=== PATIENT | female | born 1995 | race Caucasian/White ===

== ENCOUNTER 2016-08-10 06:09 | Emergency (ER) | payer MEDICAID ==
--- NOTE | 2016-08-10 08:37 | ER Document Report ---
ED General - General Chief Complaint: Headache Stated Complaint: DIFFICULTY BREATHING Mode of Arrival: Ambulatory Information source: Patient Notes: 20-year-old female history of cluster headaches presents with complaint of headache. Patient notes she gets at least 2 cluster headaches a week, has not been here since her concussion and normally treats at home but this time she felt tightness around her chest while she was having a headache. Currently denies any shortness of breath or any other concerns TRAVEL OUTSIDE OF THE [place] IN LAST 30 DAYS: No - HPI Onset: Just prior to arrival Onset/Duration: Sudden Quality of pain: Sharp Severity: Mild Pain Level: 1 Associated symptoms: Headache Exacerbated by: Denies Relieved by: Denies Similar symptoms previously: Yes Recently seen / treated by doctor: Yes - Related Data Allergies/Adverse Reactions: Penicillins Allergy (Verified 07/16/15 16:57) Hives Sulfa (Sulfonamide Antibiotics) Allergy (Verified 07/16/15 16:57) Hives vancomycin [Vancomycin] Adverse Reaction (Verified 07/16/15 16:57) Urticaria Past Medical History - General Information source: Patient - Social History Smoking Status: Never Smoker Cigarette use (# per day): No Chew tobacco use (# tins/day): No Smoking Education Provided: No Frequency of alcohol use: None Drug Abuse: None Family History: Hyperlipidemia, Hypertension, Thyroid Disfunction, Other - CAT - Past Medical History Cardiac Medical History: Denies: Hx Coronary Artery Disease, Hx Heart Attack, Hx Hypertension Pulmonary Medical History: Denies: Hx Asthma, Hx Bronchitis, Hx COPD, Hx Pneumonia Neurological Medical History: Denies: Hx Cerebrovascular Accident Endocrine Medical History: Renal/ Medical History: Reports: Hx Kidney Stones Musculoskeltal Medical History: Denies Hx Arthritis Skin Medical History: Reports Hx Eczema, Reports Hx MRSA Past Surgical History: Reports: Hx Oral Surgery - jaw surgery - Immunizations Immunizations up to date: Yes Hx Diphtheria, Pertussis, Tetanus Vaccination: Yes Review of Systems - Review of Systems Notes: REVIEW OF SYSTEMS: CONSTITUTIONAL : Denies fever, chills, or sweats. Denies recent illness. EENT: Denies eye, ear, throat, or mouth pain or symptoms. Denies nasal or sinus congestion or discharge. Denies throat, tongue, or mouth swelling or difficulty swallowing. CARDIOVASCULAR: Denies chest pain. Denies palpitations or racing or irregular heart beat. Denies ankle edema. RESPIRATORY: Denies cough, cold, or chest congestion. Denies shortness of breath, difficulty breathing, or wheezing. GASTROINTESTINAL: Denies abdominal pain or distention. Denies nausea, vomiting , or diarrhea. Denies blood in vomitus, stools, or per rectum. Denies black, tarry stools. Denies constipation. GENITOURINARY: Denies difficulty urinating, painful urination, burning, frequency, blood in urine, or discharge. FEMALE GENITOURINARY: Denies vaginal bleeding, heavy or abnormal periods, irregular periods. Denies vaginal discharge or odor. MUSCULOSKELETAL: Denies back or neck pain or stiffness. Denies joint pain or swelling. SKIN: Denies rash, lesions or sores. HEMATOLOGIC : Denies easy bruising or bleeding. LYMPHATIC: Denies swollen, enlarged glands. NEUROLOGICAL: Admits to headache PSYCHIATRIC: Denies anxiety or stress. Denies depression, suicidal ideation, or homicidal ideation. ALL OTHER SYSTEMS REVIEWED AND NEGATIVE. Dictation was performed using [employer] voice recognition software PHYSICAL EXAMINATION: GENERAL: Well-appearing, well-nourished and in no acute distress. HEAD: Atraumatic, normocephalic. EYES: Pupils equal round and reactive to light, extraocular movements intact, conjunctiva are normal. ENT: Nares patent, oropharynx clear without exudates. Moist mucous membranes. NECK: Normal range of motion, supple without lymphadenopathy LUNGS: Breath sounds clear to auscultation bilaterally and equal. No wheezes rales or rhonchi. HEART: Regular rate and rhythm without murmurs ABDOMEN: Soft, nontender, nondistended abdomen. No guarding, no rebound. No masses appreciated. Female : deferred Musculoskeletal: Normal range of motion, no pitting or edema. No cyanosis. NEUROLOGICAL: Cranial nerves grossly intact. Normal speech, normal gait. Normal sensory, motor exams finger to nose [id number] are normal PSYCH: Normal mood, normal affect. SKIN: Warm, Dry, normal turgor, no rashes or lesions noted. Physical Exam - Vital signs Vitals: Temp Pulse Resp BP Pulse Ox 97.2 F 67 14 129/81 H 99 08/10/16 06:12 08/10/16 06:12 08/10/16 06:12 08/10/16 06:12 08/10/16 06:12 Course - Re-evaluation Re-evalutation: 08/10/16 08:35 Patient was placed on nasal cannula, 4 L. After receiving oxygen for over an hour patient notes her headache has significantly improved. I believe patient is stable for discharge does not require any imaging at this time as her symptoms are similar to her previous After performing a Medical Screening Examination, I estimate there is LOW risk for ACUTE GLAUCOMA, TEMPORAL ARTERITIS, MENINGITIS, INCRANIAL HEMORRHAGE, or ISCHEMIC STROKE thus I consider the discharge disposition reasonable. The patient and I have discussed the diagnosis and risks, and we agree with discharging home with close follow-up with the understanding that symptoms and presentations can change. We also discussed returning to the Emergency Department immediately if new or worsening symptoms occur. We have discussed the symptoms which are most concerning (e.g., changing or worsening symptoms, new numbness or weakness, vomiting, fever) that necessitate immediate return. - Vital Signs Vital signs: Temp Pulse Resp BP Pulse Ox 97.1 F 81 18 116/61 100 08/10/16 07:33 08/10/16 07:33 08/10/16 07:33 08/10/16 07:33 08/10/16 07:35 Discharge - Discharge Clinical Impression: Cluster headache Qualifiers: Headache chronicity pattern: episodic headache Intractability: intractable Qualified Code(s): G44.011 - Episodic cluster headache, intractable Condition: Stable Disposition: HOME, SELF-CARE Instructions: Cluster Headache ([facility]) Referrals: SHAGGY GALLAGHER FNP-C [Primary Care Provider] - Follow up as needed JESÚS VU MD [ACTIVE STAFF] - Follow up tomorrow
[2016-08-10 08:47] VITALS: BP 122/72
== END 2016-08-10 08:47 | disposition home or self-care (01) ==
LOC: ER 06:09
DX: G44.011 Episodic cluster headache, intractable (principal); R06.00 Dyspnea, unspecified; Z88.0 Allergy status to penicillin; Z88.2 Allergy status to sulfonamides; Z88.3 Allergy status to other anti-infective agents; Z87.442 Personal history of urinary calculi; Z86.14 Personal history of Methicillin resistant Staphylococcus aureus infection
CPT/HCPCS: 99283

== ENCOUNTER 2016-10-16 09:24 | Emergency (ER) | payer MEDICAID ==
[2016-10-16] MEDS ORDERED: HYDROMORPHONE HCL INJ/PF 2 MG/ML AMPULE IM ONE (10:06)
[2016-10-16] MEDS ORDERED: ONDANSETRON 4 MG TAB.RAPDIS PO ONE (10:06)
--- NOTE | 2016-10-16 10:13 | ER Document Report ---
ED General - General Chief Complaint: Headache Stated Complaint: HEADACHE Time seen by provider: 10:07 Mode of Arrival: Ambulatory Information source: Patient Notes: This is a 20-year-old female with a history of cluster headaches that presents to the emergency room with a headache consistent with cluster headaches. She does use oxygen therapy at home and states that it did not work this time. The patient does state she's been under a lot of stress lately. She recently had reconstructive surgery of her right hip and just started physical therapy and had run out of her pain medicine and is not been getting sleep at night because of an increased ache because of the physical therapy. Her surgeon is in [place] and her appointment last week was canceled because of emergent surgery and she is due to see the surgeon in approximately another week. Patient denies any fevers, chills, shortness of breath, calf pain. TRAVEL OUTSIDE OF THE [place] IN LAST 30 DAYS: No - HPI Onset: Yesterday Onset/Duration: Gradual Quality of pain: Dull Severity: Moderate Pain Level: 3 Associated symptoms: denies: Chills, Fever, Shortness of breath Exacerbated by: Denies Relieved by: Denies Similar symptoms previously: Yes Recently seen / treated by doctor: Yes - Related Data Allergies/Adverse Reactions: Penicillins Allergy (Verified 10/16/16 09:31) Hives Sulfa (Sulfonamide Antibiotics) Allergy (Verified 10/16/16 09:31) Hives vancomycin [Vancomycin] Adverse Reaction (Verified 10/16/16 09:31) Urticaria Past Medical History - General Information source: Patient - Social History Smoking Status: Never Smoker Cigarette use (# per day): No Chew tobacco use (# tins/day): No Frequency of alcohol use: None Drug Abuse: None Lives with: Family Family History: Hyperlipidemia, Hypertension, Thyroid Disfunction, Other - CAT Patient has suicidal ideation: No Patient has homicidal ideation: No - Past Medical History Cardiac Medical History: Denies: Hx Coronary Artery Disease, Hx Heart Attack, Hx Hypertension Pulmonary Medical History: Denies: Hx Asthma, Hx Bronchitis, Hx COPD, Hx Pneumonia Neurological Medical History: Denies: Hx Cerebrovascular Accident Endocrine Medical History: Renal/ Medical History: Reports: Hx Kidney Stones. 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 Skin Medical History: Reports Hx Eczema, Reports Hx MRSA Past Surgical History: Reports: Hx Oral Surgery - jaw surgery, Hx Orthopedic Surgery - Immunizations Immunizations up to date: Yes Hx Diphtheria, Pertussis, Tetanus Vaccination: Yes Review of Systems - Review of Systems Constitutional: denies: Chills, Fever EENT: No symptoms reported Cardiovascular: No symptoms reported Respiratory: No symptoms reported Gastrointestinal: No symptoms reported Genitourinary: No symptoms reported Female Genitourinary: No symptoms reported Musculoskeletal: See HPI Hematologic/Lymphatic: No symptoms reported Neurological/Psychological: See HPI Physical Exam - Vital signs Vitals: Temp Pulse Resp BP Pulse Ox 98.0 F 71 18 128/81 H 98 10/16/16 09:28 10/16/16 09:28 10/16/16 09:28 10/16/16 09:28 10/16/16 09:28 Notes: Physical exam: GENERAL: 20-year-old female, alert and oriented 3, no acute distress. HEAD: Atraumatic, normocephalic. EYES: Pupils equal round and reactive to light, extraocular movements intact, sclera anicteric, conjunctiva are normal. ENT: TMs normal, nares patent, oropharynx clear without exudates. Moist mucous membranes. NECK: Normal range of motion, supple without lymphadenopathy or JVD. LUNGS: Breath sounds clear to auscultation bilaterally and equal. No wheezes rales or rhonchi. HEART: Regular rate and rhythm without murmurs, rubs or gallops. ABDOMEN: Soft, normoactive bowel sounds. No tenderness to palpation. No guarding, no rebound. No masses appreciated. EXTREMITIES: She does have a right hip brace that she is using. NEUROLOGICAL: Cranial nerves II through XII grossly intact. Motor 5 over 5, sensory grossly intact, she is able to ambulate with her brace. Her cerebellar exam looks good. Her neck is supple. PSYCH: Normal mood, normal affect. SKIN: Warm, Dry, normal turgor, no rashes or lesions noted. Course - Vital Signs Vital signs: Temp Pulse Resp BP Pulse Ox 97.5 F 65 16 116/76 100 10/16/16 12:21 10/16/16 12:21 10/16/16 12:21 10/16/16 12:21 10/16/16 12:21 Discharge - Discharge Clinical Impression: cluster headache Condition: Stable Disposition: HOME, SELF-CARE Instructions: Headache ([facility]), Pain Medication Injection ([facility]), Oral Narcotic Medication ([facility]), Antinausea Medication ([facility]) Additional Instructions: Recommendations: Rest, drink plenty of fluids. Take an [id number] stool softener as discussed. Follow-up with your surgeon at [place] as planned. Follow-up with your primary care doctor Return to the emergency room for any concerns your headache is getting worse. The pain medicine you're taking prescribed as a narcotic. There are several important things you should know about this medicine: 1. This medicine contains Tylenol: It is important that you do not take Tylenol (or acetaminophen) while on this medicine. Tylenol is metabolized by the liver and taking too much Tylenol (acetaminophen) can lay to liver damage and even liver failure. 2. Taking narcotics for too long can lead to physical and mental dependence. Take this medicine only if really needed and in the lowest quantity to achieve pain relief. 3. Do not drink alcohol while on this medicine. Alcohol interacts with narcotics and the combination can be dangerous. 4. Do not drive or operate machinery while on this medicine. 5. Narcotics do cause constipation, so drink plenty of fluids and daily stool softeners. Prescriptions: Alprazolam [Xanax 0.5 Mg Tablet] 1 tab PO TID PRN #20 tablet PRN Reason: Anxiety Oxycodone HCl/Acetaminophen [Percocet 5-325 mg Tablet] 1 - 2 tab PO ASDIR PRN # 25 tablet PRN Reason: Promethazine HCl [Phenergan 25 mg Tablet] 25 mg PO Q6H PRN #15 tablet PRN Reason: Referrals: LATRICE JEFFERS MD [Primary Care Provider] - Follow up as needed
[2016-10-16 12:49] VITALS: BP 116/76
== END 2016-10-16 12:38 | disposition home or self-care (01) ==
LOC: ER 09:24
DX: N20.0 Calculus of kidney (principal); R10.9 Unspecified abdominal pain
CPT/HCPCS: 99284; 96372; 82962; S0119; J1170

== ENCOUNTER 2016-10-17 07:00 | Emergency (ER) | payer MEDICAID ==
[2016-10-17 09:12] LABS: APPEARANCE,URINE CLOUDY; BILIRUBIN,URINE NEGATIVE (NEGATIVE); CALCIUM OXALATE CRYSTALS,URINE MODERATE /HPF; GLUCOSE, URINE NEGATIVE (NEGATIVE); KETONES,URINE NEGATIVE (NEGATIVE); LEUKOCYTE ESTERASE,URINE LARGE (NEGATIVE); NITRITE,URINE NEGATIVE (NEGATIVE); PROTEIN,URINE 30 mg/dL (NEGATIVE); URINE SPECIFIC GRAVITY 1.024; UROBILINOGEN,URINE NEGATIVE mg/dL (<2.0)
[2016-10-17 09:24] LABS: ABSOLUTE EOSINOPHILS # (AUTO) 0.1 10^3/uL (0.0-0.6); ABSOLUTE MONOCYTES (AUTO) 0.6 10^3/uL (0.1-1.4); ABSOLUTE NEUT (AUTO) 5.7 10^3/uL (1.7-8.2); BASOPHILS % (AUTO) 0.4 % (0-2); EOSINOPHILS % (AUTO) 1.6 % (0-6); HEMATOCRIT 38.7 % (36.0-47.0); HEMOGLOBIN 13.1 g/dL (12.0-15.5); HGB HCT DIFFERENCE 0.6; LYMPHOCYTES % (AUTO) 13.2 % (13-45); MEAN CORPUSCULAR HEMOGLOBIN 29.2 pg (27.0-33.4); MEAN CORPUSCULAR HGB CONC 33.9 g/dL (32.0-36.0); MEAN CORPUSCULAR VOLUME 86 fl (80-97); MONOCYTES % (AUTO) 7.5 % (3-13); RED CELL DISTRIBUTION WIDTH 12.8 % (11.5-14.0); SEGMENTED NEUTROPHILS % (AUTO) 77.3 % (42-78); WHITE BLOOD COUNT 7.4 10^3/uL (4.0-10.5)
[2016-10-17] MEDS ORDERED: MORPHINE SULFATE 10 MG/ML INJ IV ONE (09:46)
[2016-10-17 09:50] LABS: ALANINE AMINOTRANSFERASE 23 U/L (5-35); ALBUMIN 4.2 g/dL (3.7-5.6); ALKALINE PHOSPHATASE 88 U/L (50-135); ANION GAP 11 (5-19); ASPARTATE AMINO TRANSFERASE 26 U/L (5-30); BILIRUBIN,TOTAL 0.6 mg/dL (0.2-1.3); BLOOD UREA NITROGEN 10 mg/dL (7-20); CALCIUM 9.8 mg/dL (8.4-10.2); CARBON DIOXIDE 24 mmol/L (22-30); CHLORIDE 106 mmol/L (98-107); CREATININE RESULT 0.65 mg/dL (0.52-1.25); GLUCOSE 108 mg/dL (75-110); POTASSIUM 3.8 mmol/L (3.6-5.0); SODIUM 141.1 mmol/L (137-145); TOTAL PROTEIN 6.8 g/dL (6.3-8.2)
--- NOTE | 2016-10-17 09:54 | ER Document Report ---
ED GI/ - General Chief Complaint: Flank Pain Stated Complaint: FLANK PAIN Notes: Patient is a 20 old female returns to the emergency department complaining of right flank pain. Patient was seen at 9 AM on Tuesday for headache and postop pain. Patient underwent a right hip procedure for a right hip impingement due to defect on September 15 in [place]. Patient states that after they were evaluated in the emergency department for her cluster headaches is discharged home she was able to sleep but woke up this morning complaining of right flank pain, urgency but difficulty initiating urination. She denies any hematuria. States that her pain is on the right side constant burning stabbing pain that occasionally radiates into her right groin. Patient states this is consistent with her previous episodes of kidney stones. She admits to nausea with vomiting at home. Past medical history significant for cluster headaches, kidney stones, hypoglycemia, MRSA of the skin Past surgical history significant for right hip impingement correction, previous jaw surgery Social history she denies any current sexual activity, denies any tobacco use, alcohol, drug use TRAVEL OUTSIDE OF THE [place] IN LAST 30 DAYS: No - Related Data Allergies/Adverse Reactions: Penicillins Allergy (Verified 10/16/16 09:31) Hives Sulfa (Sulfonamide Antibiotics) Allergy (Verified 10/16/16 09:31) Hives vancomycin [Vancomycin] Adverse Reaction (Verified 10/16/16 09:31) Urticaria Past Medical History - Social History Smoking Status: Never Smoker Chew tobacco use (# tins/day): No Frequency of alcohol use: None Drug Abuse: None Family History: Hyperlipidemia, Hypertension, Thyroid Disfunction, Other - CAT Patient has suicidal ideation: No Patient has homicidal ideation: No - Past Medical History Cardiac Medical History: Denies: Hx Coronary Artery Disease, Hx Heart Attack, Hx Hypertension Pulmonary Medical History: Denies: Hx Asthma, Hx Bronchitis, Hx COPD, Hx Pneumonia Neurological Medical History: Denies: Hx Cerebrovascular Accident Endocrine Medical History: Renal/ Medical History: Reports: Hx Kidney Stones. Denies: Hx Peritoneal Dialysis Musculoskeltal Medical History: Denies Hx Arthritis Skin Medical History: Reports Hx Eczema, Reports Hx MRSA Past Surgical History: Reports: Hx Oral Surgery - jaw surgery, Hx Orthopedic Surgery - Immunizations Immunizations up to date: Yes Hx Diphtheria, Pertussis, Tetanus Vaccination: Yes Review of Systems - Review of Systems Constitutional: No symptoms reported EENT: No symptoms reported Cardiovascular: No symptoms reported Respiratory: No symptoms reported Gastrointestinal: See HPI Genitourinary: See HPI Female Genitourinary: No symptoms reported Musculoskeletal: See HPI Skin: No symptoms reported Hematologic/Lymphatic: No symptoms reported Neurological/Psychological: No symptoms reported Physical Exam - Vital signs Vitals: Temp Pulse Resp BP Pulse Ox 97.9 F 67 20 106/92 H 96 10/17/16 07:08 10/17/16 07:08 10/17/16 07:08 10/17/16 07:08 10/17/16 07:08 - Notes Notes: PHYSICAL EXAM GENERAL: Alert but tearful, interacts well. HEAD: Normocephalic, atraumatic. EYES: Pupils equal, round, and reactive to light. Extraocular movements intact. ENT: Oral mucosa moist, tongue midline. NECK: Full range of motion. Supple. Trachea midline. LUNGS: Clear to auscultation bilaterally, no wheezes, rales, or rhonchi. No respiratory distress. HEART: Regular rate and rhythm. No murmurs, gallops, or rubs. ABDOMEN: Soft, nondistended, nontender. No guarding, rebound, or rigidity.. Bowel sounds present in all 4 quadrants. Back: (+) CVA tenderness of right flank, (-) for left side. No spinous process tenderness EXTREMITIES: Moves all extremities spontaneously but guarding with right hip. No edema, radial and dorsalis pedis pulses 2/4 bilaterally. No cyanosis. NEUROLOGICAL: Alert and oriented x3. Normal speech. PSYCH: Normal affect, normal mood. SKIN: Warm, dry, normal turgor. No rashes or lesions noted. Course - Re-evaluation Re-evalutation: 10/17/16 10:37 Patient presents with nonobstructing kidney stone < 5 mm in size. Patient improved in the ED with IV morphine and antiemetics. Patient stable for outpatient management and follow up with urology. Will discharge with flomax and can take her pain medications at home. Patient instructed to return if symptoms do not improve. - Vital Signs Vital signs: Temp Pulse Resp BP Pulse Ox 97.5 F 67 20 106/92 H 96 10/17/16 07:09 10/17/16 07:09 10/17/16 07:09 10/17/16 07:09 10/17/16 07:09 - Laboratory Result Diagrams: 10/17/16 09:10 10/17/16 09:10 Laboratory results interpreted by me: 10/17/16 08:40 Urine Protein 30 H Urine Blood MODERATE H Ur Leukocyte Esterase LARGE H - Diagnostic Test Radiology reviewed: Reports reviewed Discharge - Discharge Clinical Impression: Kidney stone Condition: Good Disposition: HOME, SELF-CARE Additional Instructions: KIDNEY STONE: You are passing or have passed a kidney stone. These stones are usually due to increased calcium or uric acid concentrations in your urine. Stones within the kidney itself are not painful. The pain occurs as the stone leaves the kidney to pass down the long tube, called the ureter, leading to the bladder. If the stone is small, it will usually pass by itself. Most patients can pass the stone at home. You will usually receive medications for pain, nausea or vomiting, and sometimes a medication to assist in passing the kidney stone. However, if the pain is very severe or if vomiting prevents you from taking oral pain medications, you may need to return for further treatment. Drink three or four quarts of fluids per day. You will be given pain medication (if needed) and urine strainers. Strain all your urine to see if the stone passes. If your doctor has asked you to bring the stone in for analysis, return with the stone once it has passed. Return if pain or vomiting become severe, if you develop a high fever, if you are unable to pass your urine, or if other unusual symptoms occur. PAIN MEDICATION INJECTION: You have received an injection of a pain medication. You should experience significant pain relief within 45 minutes. This drug is a narcotic - - it will impair your judgement, slow your reaction time and make you sleepy ( as well as relieve your pain). Narcotics also can cause nausea. You should not drive, work with machinery, or perform any task requiring mental alertness until all effects of the medication are gone -- six to eight hours. Do not take any alcohol, or sedatives, and do not take any other medication without checking with your physician. ANTINAUSEA MEDICATION: You have been given a medication to suppress nausea and vomiting. This type of medication can be given as a shot, pill, or suppository. It will usually last for many hours. Pills and shots usually last six to eight hours, suppositories last about 12 hours. For the typical illness, only one or two doses of the medication may be necessary. Mild lightheadedness may occur. This type of medicine can cause drowsiness. Do not drive or operate dangerous machinery while under its influence. Do not mix with alcohol. See your doctor at once if you have muscle spasms or tightness, or uncontrollable motions (particularly of the neck, mouth, or jaw). Persistent vomiting or severe lightheadedness should also be evaluated by the physician. ORAL NARCOTIC MEDICATION: You have been given a prescription for pain control. This medication is a narcotic. It's best taken with food, as nausea can result if taken on an empty stomach. Don't operate machinery or drive within six hours of taking this medication. Do not combine this medicine with alcohol, or with any medication which can cause sedation (such as cold tablets or sleeping pills) unless you get permission from the physician. Narcotics tend to cause constipation. If possible, drink plenty of fluids and eat a diet high in fiber and fruits. Please be aware that prescription narcotics also have the potential for abuse. People become addicted to these medications because of the general sense of wellbeing that they induce. This feeling along with a significant reduction in tension, anxiety, and aggression provides a stimulating seductive quality to these drugs. Once your pain is under control, we encourage you to discard your unused narcotics. FLOMAX (tamsulosin): Flomax is a medicine that shrinks the prostate gland. It helps relieve symptoms of benign prostatic hypertrophy, such as frequent urination, weak stream, and inadequate emptying. It has been shown to dilate the ureter (tube leading from the kidney to the bladder) and help in passing kidney stones Flomax usually causes no side effects. You may notice slight tiredness and dizziness for a few days. Some patients develop nasal congestion. Rarely, impotence can occur. If the symptoms are bothersome and don't improve with continued use, call your doctor. Contact your doctor or return if you have fainting spells, severe weakness or dizziness, shortness of breath, or rash. FOLLOW-UP CARE: If you have been referred to a physician for follow-up care, call the physician s office for an appointment as you were instructed or within the next two days. If you experience worsening or a significant change in your symptoms, notify the physician immediately or return to the Emergency Department at any time for re-evaluation. Prescriptions: Ciprofloxacin HCl [Cipro 250 mg Tablet] 1 tab PO BID 3 Days Tamsulosin HCl [Flomax] 0.4 mg PO DAILY #10 cap.er.24h
[2016-10-17] MEDS ORDERED: NORMAL SALINE 1000 ML 1,000 ML IV ONE (09:55)
[2016-10-17 12:14] VITALS: BP 111/65
== END 2016-10-17 12:14 | disposition home or self-care (01) ==
LOC: ER 07:00
DX: N20.0 Calculus of kidney (principal); R10.9 Unspecified abdominal pain; R39.15 Urgency of urination; R11.2 Nausea with vomiting, unspecified; Z98.890 Other specified postprocedural states; Z88.0 Allergy status to penicillin; Z88.2 Allergy status to sulfonamides
CPT/HCPCS: 99284; 96374; 36415; 85025; 81025; 80053; 81001; 76380; J2270; J7030

== ENCOUNTER 2017-02-21 03:22 | Emergency (ER) | payer MEDICAID | END 2017-02-21 04:00 | disposition left against medical advice (07) | LOC: ER 03:22 | DX: Z53.21 Procedure and treatment not carried out due to patient leaving prior to being seen by health care provider (principal) ==

== ENCOUNTER 2017-02-24 11:06 | Emergency (ER) | payer MEDICAID ==
--- NOTE | 2017-02-24 11:38 | ER Document Report ---
ED Medical Screen (RME) - General Chief Complaint: Possible Kidney Stone Stated Complaint: FLANK PAIN Time Seen by Provider: 02/24/17 11:35 Notes: 21-year-old patient presents with right flank pain. She states that she has recently had several surgeries on her right hip. During evaluations for the surgeries she states that they incidentally noted that she had a kidney stone in her right kidney. They told her that she would probably have complications from this in the future. She states she has stones in the past. She states yesterday she started with severe right flank pain. She is having some nausea and vomiting. She states her urine is darker and she has more pressure when she urinates. No fevers. TRAVEL OUTSIDE OF THE [place] IN LAST 30 DAYS: No - Related Data Allergies/Adverse Reactions: Penicillins Allergy (Verified 02/24/17 11:31) Hives Sulfa (Sulfonamide Antibiotics) Allergy (Verified 02/24/17 11:31) Hives vancomycin [Vancomycin] Adverse Reaction (Verified 02/24/17 11:31) Urticaria Home Medications: Current Home Medications No Home Medications 02/24/17 [History] Past Medical History - Past Medical History Cardiac Medical History: Denies: Hx Coronary Artery Disease, Hx Heart Attack, Hx Hypertension Pulmonary Medical History: Denies: Hx Asthma, Hx Bronchitis, Hx COPD, Hx Pneumonia Neurological Medical History: Denies: Hx Cerebrovascular Accident Endocrine Medical History: Renal/ Medical History: Reports: Hx Kidney Stones. Denies: Hx Peritoneal Dialysis Musculoskeltal Medical History: Denies Hx Arthritis Skin Medical History: Reports Hx Eczema, Reports Hx MRSA Past Surgical History: Reports: Hx Oral Surgery - jaw surgery, Hx Orthopedic Surgery - Immunizations Immunizations up to date: Yes Hx Diphtheria, Pertussis, Tetanus Vaccination: Yes Physical Exam - Vital signs Vitals: Temp Pulse Resp BP Pulse Ox 98.2 F 77 20 142/86 H 98 02/24/17 11:22 02/24/17 11:22 02/24/17 11:22 02/24/17 11:22 02/24/17 11:22 Course - Vital Signs Vital signs: Temp Pulse Resp BP Pulse Ox 98.2 F 77 20 142/86 H 98 02/24/17 11:22 02/24/17 11:22 02/24/17 11:22 02/24/17 11:22 02/24/17 11:22
[2017-02-24 12:04] LABS: APPEARANCE,URINE SLIGHTLY-CLOUDY; BILIRUBIN,URINE NEGATIVE (NEGATIVE); GLUCOSE, URINE NEGATIVE (NEGATIVE); KETONES,URINE NEGATIVE (NEGATIVE); LEUKOCYTE ESTERASE,URINE TRACE (NEGATIVE); NITRITE,URINE POSITIVE (NEGATIVE); PROTEIN,URINE 30 mg/dL (NEGATIVE); URINE SPECIFIC GRAVITY 1.015; UROBILINOGEN,URINE NEGATIVE mg/dL (<2.0)
[2017-02-24] MEDS ORDERED: NORMAL SALINE 1000 ML 1,000 ML IV ONE ×2 (12:08→13:36)
[2017-02-24] MEDS ORDERED: MORPHINE SULFATE 10 MG/ML INJ IV ONE (12:08)
[2017-02-24 12:55] LABS: ABSOLUTE EOSINOPHILS # (AUTO) 0.1 10^3/uL (0.0-0.6); ABSOLUTE LYMPHOCYTES (AUTO) 1.5 10^3/uL (0.5-4.7); ABSOLUTE MONOCYTES (AUTO) 0.6 10^3/uL (0.1-1.4); ABSOLUTE NEUT (AUTO) 4.7 10^3/uL (1.7-8.2); BASOPHILS % (AUTO) 0.4 % (0-2); EOSINOPHILS % (AUTO) 1.3 % (0-6); HEMATOCRIT 41.6 % (36.0-47.0); HEMOGLOBIN 14.3 g/dL (12.0-15.5); HGB HCT DIFFERENCE 1.3; LYMPHOCYTES % (AUTO) 21.2 % (13-45); MEAN CORPUSCULAR HEMOGLOBIN 30.3 pg (27.0-33.4); MEAN CORPUSCULAR HGB CONC 34.4 g/dL (32.0-36.0); MEAN CORPUSCULAR VOLUME 88 fl (80-97); MONOCYTES % (AUTO) 9.2 % (3-13); RED BLOOD COUNT 4.73 10^6/uL (3.72-5.28); SEGMENTED NEUTROPHILS % (AUTO) 67.9 % (42-78)
[2017-02-24 13:08] LABS: ALANINE AMINOTRANSFERASE 17 U/L (9-52); ALBUMIN 4.3 g/dL (3.5-5.0); ALKALINE PHOSPHATASE 98 U/L (38-126); ASPARTATE AMINO TRANSFERASE 36 U/L (14-36); BILIRUBIN,DIRECT 0.3 mg/dL (0.0-0.4); BILIRUBIN,TOTAL 0.6 mg/dL (0.2-1.3); BLOOD UREA NITROGEN 9 mg/dL (7-20); CHLORIDE 109 mmol/L (98-107); CREATININE RESULT 0.66 mg/dL (0.52-1.25); GLUCOSE 82 mg/dL (75-110); POTASSIUM 3.6 mmol/L (3.6-5.0); SODIUM 143.6 mmol/L (137-145); TOTAL PROTEIN 7.4 g/dL (6.3-8.2)
[2017-02-24] MEDS ORDERED: TAMSULOSIN HCL 0.4 MG CAP.SR.24H PO ONE (13:09)
[2017-02-24 13:26] LABS: ANION GAP 14 (5-19); CARBON DIOXIDE 21 mmol/L (22-30)
--- NOTE | 2017-02-24 13:30 | ER Document Report ---
ED GI/ - General Chief Complaint: Possible Kidney Stone Stated Complaint: FLANK PAIN Time Seen by Provider: 02/24/17 11:35 Mode of Arrival: Ambulatory Information source: Patient Notes: Patient is a 21-year-old female with a history of kidney stones who presents to the ER today for right flank pain that began this morning and is "severe" in nature. She does state that it radiates around to her right side, but not into her abdomen. She states that she is past the 2 kidney since she has had before on her own. She also admits to some dysuria and "tea colored" urine. She was recently told she did have a stone in the right kidney accidentally found on CAT scan when she had hip surgery recently. She denies any fevers or chills that she knows of. TRAVEL OUTSIDE OF THE [place] IN LAST 30 DAYS: No - Related Data Allergies/Adverse Reactions: Penicillins Allergy (Verified 02/24/17 11:31) Hives Sulfa (Sulfonamide Antibiotics) Allergy (Verified 02/24/17 11:31) Hives vancomycin [Vancomycin] Adverse Reaction (Verified 02/24/17 11:31) Urticaria Past Medical History - General Information source: Patient - Social History Smoking Status: Unknown if Ever Smoked Family History: Hyperlipidemia, Hypertension, Thyroid Disfunction, Other - CAT Patient has suicidal ideation: No Patient has homicidal ideation: No - Past Medical History Cardiac Medical History: Denies: Hx Coronary Artery Disease, Hx Heart Attack, Hx Hypertension Pulmonary Medical History: Denies: Hx Asthma, Hx Bronchitis, Hx COPD, Hx Pneumonia Neurological Medical History: Denies: Hx Cerebrovascular Accident Endocrine Medical History: Renal/ Medical History: Reports: Hx Kidney Stones. Denies: Hx Peritoneal Dialysis Musculoskeltal Medical History: Denies Hx Arthritis Skin Medical History: Reports Hx Eczema, Reports Hx MRSA Past Surgical History: Reports: Hx Oral Surgery - jaw surgery, Hx Orthopedic Surgery - Immunizations Immunizations up to date: Yes Hx Diphtheria, Pertussis, Tetanus Vaccination: Yes Review of Systems - Review of Systems Constitutional: No symptoms reported EENT: No symptoms reported Cardiovascular: No symptoms reported Respiratory: No symptoms reported Gastrointestinal: No symptoms reported Genitourinary: See HPI Female Genitourinary: No symptoms reported Musculoskeletal: No symptoms reported Skin: No symptoms reported Hematologic/Lymphatic: No symptoms reported Neurological/Psychological: No symptoms reported Physical Exam - Vital signs Vitals: Temp Pulse Resp BP Pulse Ox 98.2 F 77 20 142/86 H 98 02/24/17 11:22 02/24/17 11:22 02/24/17 11:22 02/24/17 11:22 02/24/17 11:22 - Notes Notes: PHYSICAL EXAMINATION: GENERAL: Uncomfortable, but in no acute distress. HEAD: Atraumatic, normocephalic. EYES: Pupils equal round and reactive to light, extraocular movements intact, sclera anicteric, conjunctiva are normal. NECK: Normal range of motion, supple without lymphadenopathy LUNGS: CTAB and equal. No wheezes rales or rhonchi. HEART: Regular rate and rhythm without murmurs ABDOMEN: Soft, no tenderness. No guarding, no rebound BACK: no vertebral tenderness, normal ROM GI/: Right CVA tenderness EXTREMITIES: Normal range of motion, no pitting edema. No cyanosis. NEUROLOGICAL: Cranial nerves grossly intact. Normal sensory/motor exams. PSYCH: Normal mood, normal affect. SKIN: Warm, Dry, normal turgor, no rashes or lesions noted Course - Re-evaluation Re-evalutation: 02/24/17 14:47 There is blood, nitrates, leukocytes and her urinalysis, will treat her for urinary tract infection and kidney stone at this time. We will have her follow up with urology outpatient as her kidney function is normal today with a normal white blood cell count and she is afebrile with normal vital signs. I did also give her Flomax and will send her home with a prescription for this. - Vital Signs Vital signs: Temp Pulse Resp BP Pulse Ox 98.2 F 77 20 142/86 H 98 02/24/17 11:22 02/24/17 11:22 02/24/17 11:22 02/24/17 11:22 02/24/17 11:22 - Laboratory Result Diagrams: 02/24/17 12:46 02/24/17 12:46 Laboratory results interpreted by me: 02/24/17 02/24/17 11:44 12:46 Chloride 109 H Carbon Dioxide 21 L Urine Protein 30 H Urine Blood LARGE H Urine Nitrite POSITIVE H Ur Leukocyte Esterase TRACE H Discharge - Discharge Clinical Impression: Kidney stone UTI (urinary tract infection) Qualifiers: Urinary tract infection type: site unspecified Hematuria presence: with hematuria Qualified Code(s): N39.0 - Urinary tract infection, site not specified Condition: Stable Disposition: HOME, SELF-CARE Additional Instructions: Return immediately for any new or worsening symptoms. Follow up with primary care provider, call tomorrow to make followup appointment. Follow up with urologist if symptoms do not resolve in 7 days. [facility] [place] [facility] [address] [place], [place] [phone] [place] [facility] [address]. [place], [place] [phone] Prescriptions: Ciprofloxacin HCl [Cipro 500 mg Tablet] 500 mg PO BID #20 tablet Hydrocodone/Acetaminophen [[place] 5-325 mg Tablet] 1 tab PO Q4 PRN #15 tablet PRN Reason: Tamsulosin HCl [Flomax 0.4 mg Cap.sr] 0.4 mg PO DAILY #7 cap.sr.24h Referrals: LATRICE JEFFERS MD [Primary Care Provider] - Follow up as needed [facility] [Provider Group] - Follow up as needed
[2017-02-24] MEDS ORDERED: KETOROLAC TROMETHAMINE INJ/PF 30 MG/1 ML SDV IV ONE (13:37)
[2017-02-24] MEDS ORDERED: CIPROFLOXACIN 200 MG/D5W RTU 100 ML IV SCH (14:00)
[2017-02-24] MEDS ORDERED: HYDROMORPHONE HCL INJ/PF 2 MG/ML AMPULE IV ONE (14:53)
[2017-02-24 15:42] VITALS: BP 108/63
== END 2017-02-24 15:42 | disposition home or self-care (01) ==
LOC: ER 11:06
DX: N39.0 Urinary tract infection, site not specified (principal); R31.9 Hematuria, unspecified; N20.0 Calculus of kidney; Z88.0 Allergy status to penicillin; Z88.2 Allergy status to sulfonamides
CPT/HCPCS: 99284; 96361; 96375; 96365; 36415; 85025; 81025; 80053; 81001; J1885; J2270; J1170; J3490; J7030; J0744

== ENCOUNTER 2017-03-15 12:51 | Emergency (ER) | payer MEDICAID ==
[2017-03-15 12:57] VITALS: BP 136/73
--- NOTE | 2017-03-15 13:11 | ER Document Report ---
ED Medical Screen (RME) - General Chief Complaint: Possible Kidney Stone Stated Complaint: ABDOMINAL PAIN Time Seen by Provider: 03/15/17 13:08 Notes: Patient was recently seen here and diagnosed with urinary tract infection. She was given Flomax and Cipro. She states finished the course of antibiotics but feels that the infection is still present. She states she feels this way because she still has back pain and still has decreased appetite. No fevers. No vomiting. No diarrhea. Patient states that her urine is also still dark. She states that she was also told recently that she has a kidney stone and does not believe that she has passed it because she has not seen it. She states she does not strain her urine. She states that she has had multiple kidney stones in the past and is always been able to see them. TRAVEL OUTSIDE OF THE [place] IN LAST 30 DAYS: No - Related Data Allergies/Adverse Reactions: Penicillins Allergy (Verified 03/15/17 12:58) Hives Sulfa (Sulfonamide Antibiotics) Allergy (Verified 03/15/17 12:58) Hives vancomycin [Vancomycin] Adverse Reaction (Verified 03/15/17 12:58) Urticaria Past Medical History - Social History Frequency of alcohol use: None Drug Abuse: None - Past Medical History Cardiac Medical History: Denies: Hx Coronary Artery Disease, Hx Heart Attack, Hx Hypertension Pulmonary Medical History: Denies: Hx Asthma, Hx Bronchitis, Hx COPD, Hx Pneumonia Neurological Medical History: Denies: Hx Cerebrovascular Accident Endocrine Medical History: Renal/ Medical History: Reports: Hx Kidney Stones. Denies: Hx Peritoneal Dialysis Musculoskeltal Medical History: Denies Hx Arthritis Skin Medical History: Reports Hx Eczema, Reports Hx MRSA Past Surgical History: Reports: Hx Oral Surgery - jaw surgery, Hx Orthopedic Surgery - Immunizations Immunizations up to date: Yes Hx Diphtheria, Pertussis, Tetanus Vaccination: Yes Physical Exam - Vital signs Vitals: Temp Pulse Resp BP Pulse Ox 98.9 F 94 16 136/73 H 99 03/15/17 12:53 03/15/17 12:53 03/15/17 12:53 03/15/17 12:53 03/15/17 12:53 Course - Vital Signs Vital signs: Temp Pulse Resp BP Pulse Ox 98.9 F 94 16 136/73 H 99 03/15/17 12:53 03/15/17 12:53 03/15/17 12:53 03/15/17 12:53 03/15/17 12:53
[2017-03-15 13:30] LABS: APPEARANCE,URINE CLEAR; BILIRUBIN,URINE NEGATIVE (NEGATIVE); GLUCOSE, URINE NEGATIVE (NEGATIVE); KETONES,URINE NEGATIVE (NEGATIVE); LEUKOCYTE ESTERASE,URINE TRACE (NEGATIVE); NITRITE,URINE NEGATIVE (NEGATIVE); PROTEIN,URINE NEGATIVE (NEGATIVE); URINE SPECIFIC GRAVITY 1.004; UROBILINOGEN,URINE NEGATIVE mg/dL (<2.0)
[2017-03-15 14:05] LABS: ABSOLUTE BASOPHILS # (AUTO) 0.1 10^3/uL (0.0-0.2); ABSOLUTE EOSINOPHILS # (AUTO) 0.1 10^3/uL (0.0-0.6); ABSOLUTE LYMPHOCYTES (AUTO) 1.4 10^3/uL (0.5-4.7); ABSOLUTE MONOCYTES (AUTO) 0.6 10^3/uL (0.1-1.4); ABSOLUTE NEUT (AUTO) 6.8 10^3/uL (1.7-8.2); BASOPHILS % (AUTO) 0.6 % (0-2); EOSINOPHILS % (AUTO) 1.1 % (0-6); HEMATOCRIT 42.2 % (36.0-47.0); HEMOGLOBIN 14.8 g/dL (12.0-15.5); HGB HCT DIFFERENCE 2.2; LYMPHOCYTES % (AUTO) 15.5 % (13-45); MEAN CORPUSCULAR HEMOGLOBIN 30.4 pg (27.0-33.4); MEAN CORPUSCULAR HGB CONC 35.1 g/dL (32.0-36.0); MEAN CORPUSCULAR VOLUME 87 fl (80-97); MONOCYTES % (AUTO) 7.1 % (3-13); RED BLOOD COUNT 4.86 10^6/uL (3.72-5.28); RED CELL DISTRIBUTION WIDTH 12.9 % (11.5-14.0); SEGMENTED NEUTROPHILS % (AUTO) 75.7 % (42-78); WHITE BLOOD COUNT 8.9 10^3/uL (4.0-10.5)
[2017-03-15 14:38] LABS: ALANINE AMINOTRANSFERASE 32 U/L (9-52); ALBUMIN 4.3 g/dL (3.5-5.0); ALKALINE PHOSPHATASE 97 U/L (38-126); ANION GAP 10 (5-19); ASPARTATE AMINO TRANSFERASE 28 U/L (14-36); BILIRUBIN,DIRECT 0.3 mg/dL (0.0-0.4); BILIRUBIN,TOTAL 0.6 mg/dL (0.2-1.3); BLOOD UREA NITROGEN 11 mg/dL (7-20); CALCIUM 9.3 mg/dL (8.4-10.2); CARBON DIOXIDE 25 mmol/L (22-30); CHLORIDE 108 mmol/L (98-107); CREATININE RESULT 0.76 mg/dL (0.52-1.25); GLUCOSE 90 mg/dL (75-110); POTASSIUM 4.2 mmol/L (3.6-5.0); SODIUM 142.7 mmol/L (137-145); TOTAL PROTEIN 7.4 g/dL (6.3-8.2)
--- NOTE | 2017-03-15 14:49 | ER Document Report ---
ED GI/ - General Mode of Arrival: Ambulatory Information source: Patient TRAVEL OUTSIDE OF THE [place] IN LAST 30 DAYS: No - HPI Patient complains to provider of: Flank pain Onset: Other - x2 weeks Timing/Duration: Persistent Associated symptoms: None Similar symptoms previously: Yes Recently seen / treated by doctor: Yes <RESHMA JEROME - Last Filed: 03/15/17 15:07> <MICKEY BELLE - Last Filed: 03/15/17 23:15> - General Chief Complaint: Possible Kidney Stone Stated Complaint: ABDOMINAL PAIN Time Seen by Provider: 03/15/17 13:08 Notes: Patient is a 21-year-old female who presents to the emergency department today with complaints of right-sided flank pain. Patient states she was diagnosed with kidney stones 2 weeks ago and she does not believe she has passed this stone. Patient states she has noticed blood in her urine. Patient states she does not believe the antibiotics helped. Patient denies fevers. (RESHMA JEROME) - Related Data Allergies/Adverse Reactions: Penicillins Allergy (Verified 03/15/17 12:58) Hives Sulfa (Sulfonamide Antibiotics) Allergy (Verified 03/15/17 12:58) Hives vancomycin [Vancomycin] Adverse Reaction (Verified 03/15/17 12:58) Urticaria Past Medical History - General Information source: Patient - Social History Smoking Status: Never Smoker Cigarette use (# per day): No Frequency of alcohol use: None Drug Abuse: None Lives with: Family Family History: Reviewed & Not Pertinent, Hyperlipidemia, Hypertension, Thyroid Disfunction, Other - CAT Patient has suicidal ideation: No Patient has homicidal ideation: No Endocrine Medical History: Renal/ Medical History: Reports: Hx Kidney Stones Skin Medical History: Reports Hx Eczema, Reports Hx MRSA Past Surgical History: Reports: Hx Oral Surgery - jaw surgery, Hx Orthopedic Surgery - Immunizations Immunizations up to date: Yes Hx Diphtheria, Pertussis, Tetanus Vaccination: Yes <RESHMA JEROME - Last Filed: 03/15/17 15:07> Review of Systems - Review of Systems Constitutional: denies: Fever EENT: No symptoms reported Cardiovascular: No symptoms reported Respiratory: No symptoms reported Gastrointestinal: No symptoms reported Genitourinary: See HPI, Flank pain - right Female Genitourinary: No symptoms reported Musculoskeletal: No symptoms reported Skin: No symptoms reported Hematologic/Lymphatic: No symptoms reported Neurological/Psychological: No symptoms reported -: Yes All other systems reviewed and negative <RESHMA JEROME - Last Filed: 03/15/17 15:07> Physical Exam <RESHMA JEROME - Last Filed: 03/15/17 15:07> <MICKEY BELLE - Last Filed: 03/15/17 23:15> - Vital signs Vitals: Temp Pulse Resp BP Pulse Ox 98.9 F 94 16 136/73 H 99 03/15/17 12:53 03/15/17 12:53 03/15/17 12:53 03/15/17 12:53 03/15/17 12:53 - Notes Notes: Physical Exam: General: Alert, appears well. HEENT: Normocephalic. Atraumatic. PERRL. Extraocular movements intact. Oropharynx clear. Dry mucous membranes. Neck: Supple. Non-tender. Respiratory: No respiratory distress. Clear and equal breath sounds bilaterally. Cardiovascular: Regular rate and rhythm. Abdominal: Normal Inspection. Non-tender. No distension. Normal Bowel Sounds. Back: Mild right CVA tenderness with percussion. No deformity or step off. Extremities: Moves all four extremities. Upper extremities: Normal inspection. Normal ROM. Lower extremities: Normal inspection. No edema. Normal ROM. Neurological: Normal cognition. AAOx4. Normal speech. Psychological: Normal affect. Normal Mood. Skin: Warm. Dry. Normal color. (RESHMA JEROME) Course - Laboratory Result Diagrams: 03/15/17 13:53 03/15/17 13:53 <RESHMA JEROME - Last Filed: 03/15/17 15:07> - Laboratory Result Diagrams: 03/15/17 13:53 03/15/17 13:53 - Diagnostic Test Radiology reviewed: Reports reviewed <MICKEY BELLE - Last Filed: 03/15/17 23:15> - Re-evaluation Re-evalutation: 03/15/17 Patient presents with flank pain. Her urine appears less infected and less bloody than when she was here most recently. Urine culture has been sent today. Patient will be restarted on her antibiotic as she likely has a kidney stone that this carries some infection in it. She is to strain her urine and to follow-up with urology as scheduled. She will also be given Flomax and she is currently out of it. Otherwise, appears well. Stable for discharge. ( MICKEY BELLE) - Vital Signs Vital signs: Temp Pulse Resp BP Pulse Ox 98.6 F 99 16 136/73 H 100 03/15/17 14:50 03/15/17 14:50 03/15/17 14:50 03/15/17 14:50 03/15/17 14:50 - Laboratory Laboratory results interpreted by me: 03/15/17 03/15/17 13:01 13:53 Chloride 108 H Urine Blood SMALL H Ur Leukocyte Esterase TRACE H Discharge <RESHMA JEROME - Last Filed: 03/15/17 15:07> <MICKEY BELLE - Last Filed: 03/15/17 23:15> - Discharge Clinical Impression: Kidney stone UTI (urinary tract infection) Qualifiers: Urinary tract infection type: site unspecified Hematuria presence: with hematuria Qualified Code(s): N39.0 - Urinary tract infection, site not specified ; R31.9 - Hematuria, unspecified Condition: Stable Disposition: HOME, SELF-CARE Instructions: Urinary Tract Infection ([facility]), Kidney Stone ([facility]) Prescriptions: Cephalexin Monohydrate [Keflex 500 mg Capsule] 500 mg PO QID #40 capsule Oxycodone HCl/Acetaminophen [Percocet 5-325 mg Tablet] 1 tab PO BIDP PRN #15 tablet PRN Reason: Oxycodone HCl/Acetaminophen [Percocet 5-325 mg Tablet] 1 tab PO Q4H PRN #20 tablet PRN Reason: Tamsulosin HCl [Flomax 0.4 mg Cap.sr] 0.4 mg PO DAILY #20 cap.sr.24h Referrals: LATRICE JEFFERS MD [Primary Care Provider] - Follow up as needed Scribe Attestation: 03/15/17 23:15 I personally performed the services described in the documentation, reviewed and edited the documentation which was dictated to the scribe in my presence, and it accurately records my words and actions. (MICKEY BELLE) Scribe Documentation - Scribe Written by Scribe:: Barbara Khanna, 03/15/2017 1509 acting as scribe for :: Leti <RESHMA JEROME - Last Filed: 03/15/17 15:07>
== END 2017-03-15 15:05 | disposition home or self-care (01) ==
LOC: ER 12:51
DX: N20.0 Calculus of kidney (principal); N39.0 Urinary tract infection, site not specified; R10.9 Unspecified abdominal pain; Z87.442 Personal history of urinary calculi; Z88.0 Allergy status to penicillin; Z88.2 Allergy status to sulfonamides; Z88.3 Allergy status to other anti-infective agents; Z86.14 Personal history of Methicillin resistant Staphylococcus aureus infection
CPT/HCPCS: 36415; 80053; 81001; 81025; 85025; 87086; 87088; 87186; 99284

== ENCOUNTER 2017-08-22 21:11 | Emergency (ER) | payer MEDICAID ==
[2017-08-22 21:45] VITALS: BP 129/81
[2017-08-22] MEDS ORDERED: ONDANSETRON HCL INJ/PF 4 MG/2 ML SDV IV ONE (22:48)
[2017-08-22] MEDS ORDERED: NORMAL SALINE 500 ML IV PRN (22:48)
== END 2017-08-22 22:48 | disposition left against medical advice (07) ==
LOC: ER 21:11
DX: Z53.21 Procedure and treatment not carried out due to patient leaving prior to being seen by health care provider (principal)

== ENCOUNTER 2017-08-25 16:50 | Emergency (ER) | payer MEDICAID ==
[2017-08-25] MEDS ORDERED: METOCLOPRAMIDE HCL 10 MG TABLET PO ONE (18:57)
--- NOTE | 2017-08-25 19:13 | ER Document Report ---
ED General - General Chief Complaint: Abdominal Pain Stated Complaint: VOMITING, STOMACH/BACK PAIN Time Seen by Provider: 08/25/17 18:28 Mode of Arrival: Ambulatory Information source: Patient Notes: 21-year-old female 2 para 01 miscarriage in the past presents with complaints of right lower quadrant abdominal pain over the past day associated with nausea vomiting. Patient notes she is approximately 6-7 weeks . No confirmed IUP. Patient has history of kidney stones but states her flank does not hurt. She denies any vaginal bleeding or discharge TRAVEL OUTSIDE OF THE [place] IN LAST 30 DAYS: No - HPI Onset: Yesterday Onset/Duration: Sudden Quality of pain: Cramping Severity: Mild Pain Level: 1 Associated symptoms: Nausea, Vomiting Exacerbated by: Denies Relieved by: Denies Similar symptoms previously: No Recently seen / treated by doctor: No - Related Data Allergies/Adverse Reactions: Penicillins Allergy (Verified 08/25/17 16:52) Hives Sulfa (Sulfonamide Antibiotics) Allergy (Verified 08/25/17 16:52) Hives vancomycin [Vancomycin] Adverse Reaction (Verified 08/25/17 16:52) Urticaria Past Medical History - Social History Smoking Status: Never Smoker Cigarette use (# per day): No Chew tobacco use (# tins/day): No Smoking Education Provided: No Frequency of alcohol use: None Drug Abuse: None Family History: Reviewed & Not Pertinent, Hyperlipidemia, Hypertension, Thyroid Disfunction, Other - CAT Patient has suicidal ideation: No Patient has homicidal ideation: No - Past Medical History Cardiac Medical History: Denies: Hx Coronary Artery Disease, Hx Heart Attack, Hx Hypertension Pulmonary Medical History: Denies: Hx Asthma, Hx Bronchitis, Hx COPD, Hx Pneumonia Neurological Medical History: Denies: Hx Cerebrovascular Accident Endocrine Medical History: Renal/ Medical History: Reports: Hx Kidney Stones. Denies: Hx Peritoneal Dialysis Musculoskeltal Medical History: Denies Hx Arthritis Skin Medical History: Reports Hx Eczema, Reports Hx MRSA Past Surgical History: Reports: Hx Oral Surgery - jaw surgery,, Hx Orthopedic Surgery - hip surgery - Immunizations Immunizations up to date: Yes Hx Diphtheria, Pertussis, Tetanus Vaccination: Yes Review of Systems - Review of Systems Notes: REVIEW OF SYSTEMS: CONSTITUTIONAL : Denies fever, chills, or sweats. Denies recent illness. EENT: Denies eye, ear, throat, or mouth pain or symptoms. Denies nasal or sinus congestion or discharge. Denies throat, tongue, or mouth swelling or difficulty swallowing. CARDIOVASCULAR: Denies chest pain. Denies palpitations or racing or irregular heart beat. Denies ankle edema. RESPIRATORY: Denies cough, cold, or chest congestion. Denies shortness of breath, difficulty breathing, or wheezing. GASTROINTESTINAL: admits to abd pain , GENITOURINARY: Denies difficulty urinating, painful urination, burning, frequency, blood in urine, or discharge. FEMALE GENITOURINARY: Denies vaginal bleeding, heavy or abnormal periods, irregular periods. Denies vaginal discharge or odor. MUSCULOSKELETAL: Denies back or neck pain or stiffness. Denies joint pain or swelling. SKIN: Denies rash, lesions or sores. HEMATOLOGIC : Denies easy bruising or bleeding. LYMPHATIC: Denies swollen, enlarged glands. NEUROLOGICAL: Denies confusion or altered mental status. Denies passing out or loss of consciousness. Denies dizziness or lightheadedness. Denies headache. Denies weakness or paralysis or loss of use of either side. Denies problems with gait or speech. Denies sensory loss, numbness, or tingling. Denies seizures. PSYCHIATRIC: Denies anxiety or stress. Denies depression, suicidal ideation, or homicidal ideation. ALL OTHER SYSTEMS REVIEWED AND NEGATIVE. PHYSICAL EXAMINATION: GENERAL: Well-appearing, well-nourished and in no acute distress. HEAD: Atraumatic, normocephalic. EYES: Pupils equal round and reactive to light, extraocular movements intact, conjunctiva are normal. ENT: Nares patent, oropharynx clear without exudates. Moist mucous membranes. NECK: Normal range of motion, supple without lymphadenopathy LUNGS: Breath sounds clear to auscultation bilaterally and equal. No wheezes rales or rhonchi. HEART: Regular rate and rhythm without murmurs ABDOMEN: Soft, minimally tender Female : deferred Musculoskeletal: Normal range of motion, no pitting or edema. No cyanosis. NEUROLOGICAL: Cranial nerves grossly intact. Normal speech, normal gait. Normal sensory, motor exams PSYCH: Normal mood, normal affect. SKIN: Warm, Dry, normal turgor, no rashes or lesions noted. Dictation was performed using [employer] voice recognition software Physical Exam - Vital signs Vitals: Temp Pulse Resp BP Pulse Ox 98.4 F 81 16 134/77 H 99 01/18/18 17:15 08/25/17 17:15 08/25/17 17:15 08/25/17 17:15 08/25/17 17:15 Course - Re-evaluation Re-evalutation: 08/25/17 21:09 Obvious concern is for an ectopic , patient overall looks well is in no distress, she is noted to have an hCG of 1300 and early IUP as possible on the ultrasound however is not confirmed, given that the quant is too low for confirmation I will give the patient 48 hour recheck. I have explained for her to return immediately if symptoms worsen. Patient has no other concerns at this time. I will discharge home with nausea control After performing a Medical Screening Examination, I estimate there is LOW risk for ACUTE APPENDICITIS, BOWEL OBSTRUCTION, ACUTE CHOLECYSTITIS, PERFORATED DIVERTICULITIS, INCARCERATED HERNIA, PANCREATITIS, PELVIC INFLAMMATORY DISEASE, PERFORATED ULCER, ECTOPIC , or TUBO-OVARIAN ABSCESS, thus I consider the discharge disposition reasonable. Also, there is no evidence or peritonitis , sepsis, or toxicity. I have reevaluated this patient multiple times and no significant life threatening changes are noted. The patient and I have discussed the diagnosis and risks, and we agree with discharging home with close follow-up with the understanding that symptoms and presentations can change. We also discussed returning to the Emergency Department immediately if new or worsening symptoms occur. We have discussed the symptoms which are most concerning (e.g., bloody stool, fever, changing or worsening pain, vomiting) that necessitate immediate return. - Vital Signs Vital signs: Temp Pulse Resp BP Pulse Ox 99.1 F 71 16 134/75 H 100 08/25/17 21:04 08/25/17 21:04 08/25/17 21:04 08/25/17 21:04 08/25/17 21:04 - Laboratory Result Diagrams: 08/25/17 19:27 08/25/17 19:27 Laboratory results interpreted by me: 08/25/17 08/25/17 19:00 19:27 Chloride 108 H Carbon Dioxide 21 L Total Protein 8.7 H Albumin 5.3 H Beta HCG, Quant 1365.00 H Urine Urobilinogen 2.0 H Ur Leukocyte Esterase TRACE H - Diagnostic Test Radiology reviewed: Image reviewed, Reports reviewed - IUP not confirmed Discharge - Discharge Clinical Impression: Pelvic pain affecting Qualifiers: Trimester: first trimester Qualified Code(s): O26.891 - Other specified related conditions, first trimester; R10.2 - Pelvic and perineal pain ; R10.2 - Pelvic and perineal pain Condition: Stable Disposition: HOME, SELF-CARE Additional Instructions: Please return in 48 hours for lab work, return immediately if there are any other concerns Forms: Follow-Up Laboratory Testing Referrals: [facility] [Provider Group] - Follow up in 3-5 days
[2017-08-25 19:28] LABS: APPEARANCE,URINE SLIGHTLY-CLOUDY; BILIRUBIN,URINE NEGATIVE (NEGATIVE); COLOR,URINE YELLOW; GLUCOSE, URINE NEGATIVE (NEGATIVE); KETONES,URINE NEGATIVE (NEGATIVE); LEUKOCYTE ESTERASE,URINE TRACE (NEGATIVE); NITRITE,URINE NEGATIVE (NEGATIVE); PROTEIN,URINE NEGATIVE (NEGATIVE); URINE SPECIFIC GRAVITY 1.031
[2017-08-25 19:38] LABS: ABSOLUTE BASOPHILS # (AUTO) 0.1 10^3/uL (0.0-0.2); ABSOLUTE LYMPHOCYTES (AUTO) 1.7 10^3/uL (0.5-4.7); ABSOLUTE MONOCYTES (AUTO) 0.6 10^3/uL (0.1-1.4); ABSOLUTE NEUT (AUTO) 6.6 10^3/uL (1.7-8.2); BASOPHILS % (AUTO) 0.7 % (0-2); EOSINOPHILS % (AUTO) 0.5 % (0-6); HEMATOCRIT 45.4 % (36.0-47.0); HEMOGLOBIN 15.3 g/dL (12.0-15.5); LYMPHOCYTES % (AUTO) 19.1 % (13-45); MEAN CORPUSCULAR HEMOGLOBIN 29.8 pg (27.0-33.4); MEAN CORPUSCULAR HGB CONC 33.7 g/dL (32.0-36.0); MEAN CORPUSCULAR VOLUME 89 fl (80-97); MONOCYTES % (AUTO) 6.4 % (3-13); PLATELET COUNT 266 10^3/uL (150-450); RED BLOOD COUNT 5.13 10^6/uL (3.72-5.28); RED CELL DISTRIBUTION WIDTH 13.4 % (11.5-14.0); SEGMENTED NEUTROPHILS % (AUTO) 73.3 % (42-78); TOTAL CELLS COUNTED % (AUTO) 100 %
[2017-08-25 19:59] LABS: ALANINE AMINOTRANSFERASE 31 U/L (9-52); ALBUMIN 5.3 g/dL (3.5-5.0); ALKALINE PHOSPHATASE 95 U/L (38-126); ANION GAP 16 (5-19); ASPARTATE AMINO TRANSFERASE 30 U/L (14-36); BILIRUBIN,DIRECT 0.3 mg/dL (0.0-0.4); BILIRUBIN,TOTAL 0.4 mg/dL (0.2-1.3); BLOOD UREA NITROGEN 11 mg/dL (7-20); CALCIUM 10.2 mg/dL (8.4-10.2); CARBON DIOXIDE 21 mmol/L (22-30); CHLORIDE 108 mmol/L (98-107); GLUCOSE 85 mg/dL (75-110); LIPASE 97.9 U/L (23-300); POTASSIUM 3.9 mmol/L (3.6-5.0); SODIUM 144.6 mmol/L (137-145); TOTAL PROTEIN 8.7 g/dL (6.3-8.2)
--- NOTE | 2017-08-25 21:01 | RADIOLOGY REPORT (SQ) ---
EXAM DESCRIPTION: U/S OB TRANSVAGINAL W/O DOP COMPLETED DATE/TIME: 08/25/2017 8:52 pm REASON FOR STUDY: pelvic pain COMPARISON: None. TECHNIQUE: Transvaginal static and realtime grayscale images acquired of the pelvis. Additional becca cted spectral and color Doppler images recorded. All images stored on PACs. [id number] LIMITATIONS: None. FINDINGS: UTERUS: No masses. No anomalies. GESTATIONAL SAC: Possible early gestational sac. YOLK SAC: No. POLE: No. RIGHT ADNEXA: Right ovary itself is not visualized however there are 2 adjacent cysts within the righ t adnexum together measuring 4.9 x 3.8 cm presumably arising from the right ovary. No adnexal free fluid. LEFT ADNEXA: Ovary not identified. No adnexal free fluid. No adnexal masses. FREE FLUID: None. OTHER: No other significant finding. IMPRESSION: POSSIBLE EARLY INTRAUTERINE . BHCG LEVEL APPROPRIATE FOR ENDOMETRIAL FINDINGS. CONSIDER F/U BHCG AND/OR ULTRASOUND FOR VERIFICATION AND TO EXCLUDE ECTOPIC . Trimester of : First - 0 to 13 weeks. TECHNICAL DOCUMENTATION: JOB ID: [id number] [email or web address] All Rights Reserved
[2017-08-25 21:05] VITALS: BP 134/75
== END 2017-08-25 21:15 | disposition home or self-care (01) ==
LOC: ER 16:50
DX: O26.891 Other specified pregnancy related conditions, first trimester (principal); R11.2 Nausea with vomiting, unspecified; R10.2 Pelvic and perineal pain; M54.9 Dorsalgia, unspecified; R10.31 Right lower quadrant pain; Z3A.01 Less than 8 weeks gestation of pregnancy
CPT/HCPCS: 99284; 36415; 84702; 83690; 85025; 80053; 81001; 76817; J3490

== ENCOUNTER → 2017-08-27 | Outpatient (CLI) | payer MEDICAID | LOC: LAB 17:25 | PROVIDERS: ATTEND Emergency Medicine | DX: O26.899 Other specified pregnancy related conditions, unspecified trimester (principal); R10.2 Pelvic and perineal pain; Z3A.00 Weeks of gestation of pregnancy not specified | CPT/HCPCS: 36415; 84702 ==

== ENCOUNTER 2017-10-31 09:39 | Emergency (ER) | payer MEDICAID ==
[2017-10-31] MEDS ORDERED: NORMAL SALINE 1000 ML 1,000 ML IV ONE (10:08)
--- NOTE | 2017-10-31 10:10 | ER Document Report ---
ED Medical Screen (RME) - General Chief Complaint: Vag Bleeding, +preg <12wks Stated Complaint: VAGINAL BLEEDING Time Seen by Provider: 10/31/17 10:06 Notes: pt with onset this am of non painful vaginal bleeding. no clots. had US last week and had "normal" 14wk IUP per pt. States she is RH neg and will need rhogam TRAVEL OUTSIDE OF THE [place] IN LAST 30 DAYS: No - Related Data Allergies/Adverse Reactions: Penicillins Allergy (Verified 10/31/17 09:39) Hives Sulfa (Sulfonamide Antibiotics) Allergy (Verified 10/31/17 09:39) Hives vancomycin [Vancomycin] Adverse Reaction (Verified 10/31/17 09:39) Urticaria Past Medical History - Social History Frequency of alcohol use: None Drug Abuse: None - Past Medical History Cardiac Medical History: Denies: Hx Coronary Artery Disease, Hx Heart Attack, Hx Hypertension Pulmonary Medical History: Denies: Hx Asthma, Hx Bronchitis, Hx COPD, Hx Pneumonia Neurological Medical History: Denies: Hx Cerebrovascular Accident Endocrine Medical History: Renal/ Medical History: Reports: Hx Kidney Stones. Denies: Hx Peritoneal Dialysis Musculoskeltal Medical History: Denies Hx Arthritis Skin Medical History: Reports Hx Eczema, Reports Hx MRSA Past Surgical History: Reports: Hx Oral Surgery - jaw surgery,, Hx Orthopedic Surgery - hip surgery - Immunizations Immunizations up to date: Yes Hx Diphtheria, Pertussis, Tetanus Vaccination: Yes Physical Exam - Vital signs Vitals: Temp Pulse Resp BP Pulse Ox 98.7 F 112 H 19 128/83 H 99 10/31/17 09:43 10/31/17 09:43 10/31/17 09:43 10/31/17 09:43 10/31/17 09:43 Course - Vital Signs Vital signs: Temp Pulse Resp BP Pulse Ox 98.7 F 112 H 19 128/83 H 99 10/31/17 09:43 10/31/17 09:43 10/31/17 09:43 10/31/17 09:43 10/31/17 09:43
[2017-10-31 10:33] LABS: ABSOLUTE EOSINOPHILS # (AUTO) 0.2 10^3/uL (0.0-0.6); ABSOLUTE LYMPHOCYTES (AUTO) 1.3 10^3/uL (0.5-4.7); ABSOLUTE MONOCYTES (AUTO) 0.5 10^3/uL (0.1-1.4); ABSOLUTE NEUT (AUTO) 5.6 10^3/uL (1.7-8.2); BASOPHILS % (AUTO) 0.6 % (0-2); HEMATOCRIT 40.6 % (36.0-47.0); HEMOGLOBIN 14.1 g/dL (12.0-15.5); LYMPHOCYTES % (AUTO) 17.6 % (13-45); MEAN CORPUSCULAR HEMOGLOBIN 29.7 pg (27.0-33.4); MEAN CORPUSCULAR HGB CONC 34.8 g/dL (32.0-36.0); MEAN CORPUSCULAR VOLUME 85 fl (80-97); MONOCYTES % (AUTO) 5.9 % (3-13); PLATELET COUNT 232 10^3/uL (150-450); RED BLOOD COUNT 4.76 10^6/uL (3.72-5.28); RED CELL DISTRIBUTION WIDTH 12.9 % (11.5-14.0); SEGMENTED NEUTROPHILS % (AUTO) 73.9 % (42-78); TOTAL CELLS COUNTED % (AUTO) 100 %; WHITE BLOOD COUNT 7.6 10^3/uL (4.0-10.5)
--- NOTE | 2017-10-31 10:45 | ER Document Report ---
ED GI/ - General Chief Complaint: Vag Bleeding, +preg <12wks Stated Complaint: VAGINAL BLEEDING Time Seen by Provider: 10/31/17 10:06 Notes: HPI-21 years old female presents today with 14 weeks , had an ultrasound a week ago with normal finding, this morning started to bleed. Therefore presented to the ED she has O- blood. Denies any abdominal cramps. Denies any other constitutional symptoms REVIEW OF SYSTEMS: CONSTITUTIONAL : Denies fever, chills, or sweats. Denies recent illness. EENT: Denies eye, ear, throat, or mouth pain or symptoms. Denies nasal or sinus congestion or discharge. Denies throat, tongue, or mouth swelling or difficulty swallowing. CARDIOVASCULAR: Denies chest pain. Denies palpitations or racing or irregular heart beat. Denies ankle edema. RESPIRATORY: Denies cough, cold, or chest congestion. Denies shortness of breath, difficulty breathing, or wheezing. GASTROINTESTINAL: Denies abdominal pain or distention. Denies nausea, vomiting , or diarrhea. Denies blood in vomitus, stools, or per rectum. Denies black, tarry stools. Denies constipation. GENITOURINARY: Denies difficulty urinating, painful urination, burning, frequency, blood in urine, or discharge. FEMALE GENITOURINARY: Denies vaginal bleeding, heavy or abnormal periods, irregular periods. Denies vaginal discharge or odor. MUSCULOSKELETAL: Denies back or neck pain or stiffness. Denies joint pain or swelling. SKIN: Denies rash, lesions or sores. HEMATOLOGIC : Denies easy bruising or bleeding. LYMPHATIC: Denies swollen, enlarged glands. NEUROLOGICAL: Denies confusion or altered mental status. Denies passing out or loss of consciousness. Denies dizziness or lightheadedness. Denies headache. Denies weakness or paralysis or loss of use of either side. Denies problems with gait or speech. Denies sensory loss, numbness, or tingling. Denies seizures. PSYCHIATRIC: Denies anxiety or stress. Denies depression, suicidal ideation, or homicidal ideation. ALL OTHER SYSTEMS REVIEWED AND NEGATIVE. PHYSICAL EXAMINATION: GENERAL: Well-appearing, well-nourished and in no acute distress. HEAD: Atraumatic, normocephalic. EYES: Pupils equal round and reactive to light, extraocular movements intact, conjunctiva are normal. ENT: Nares patent, oropharynx clear without exudates. Moist mucous membranes. NECK: Normal range of motion, supple without lymphadenopathy LUNGS: Breath sounds clear to auscultation bilaterally and equal. No wheezes rales or rhonchi. HEART: Regular rate and rhythm without murmurs ABDOMEN: Soft, nontender, nondistended abdomen. No guarding, no rebound. No masses appreciated. Female : deferred Musculoskeletal: Normal range of motion, no pitting or edema. No cyanosis. NEUROLOGICAL: Cranial nerves grossly intact. Normal speech, normal gait. Normal sensory, motor exams PSYCH: Normal mood, normal affect. SKIN: Warm, Dry, normal turgor, no rashes or lesions noted. Dictation was performed using [employer] voice recognition software TRAVEL OUTSIDE OF THE [place] IN LAST 30 DAYS: No - Related Data Allergies/Adverse Reactions: Penicillins Allergy (Verified 10/31/17 09:39) Hives Sulfa (Sulfonamide Antibiotics) Allergy (Verified 10/31/17 09:39) Hives vancomycin [Vancomycin] Adverse Reaction (Verified 10/31/17 09:39) Urticaria Past Medical History - Social History Smoking Status: Unknown if Ever Smoked Frequency of alcohol use: None Drug Abuse: None Family History: Reviewed & Not Pertinent, Hyperlipidemia, Hypertension, Thyroid Disfunction, Other - CAT Patient has suicidal ideation: No Patient has homicidal ideation: No - Past Medical History Cardiac Medical History: Denies: Hx Coronary Artery Disease, Hx Heart Attack, Hx Hypertension Pulmonary Medical History: Denies: Hx Asthma, Hx Bronchitis, Hx COPD, Hx Pneumonia Neurological Medical History: Denies: Hx Cerebrovascular Accident Endocrine Medical History: Renal/ Medical History: Reports: Hx Kidney Stones. Denies: Hx Peritoneal Dialysis Musculoskeltal Medical History: Denies Hx Arthritis Skin Medical History: Reports Hx Eczema, Reports Hx MRSA Past Surgical History: Reports: Hx Oral Surgery - jaw surgery,, Hx Orthopedic Surgery - hip surgery - Immunizations Immunizations up to date: Yes Hx Diphtheria, Pertussis, Tetanus Vaccination: Yes Physical Exam - Vital signs Vitals: Temp Pulse Resp BP Pulse Ox 98.7 F 112 H 19 128/83 H 99 10/31/17 09:43 10/31/17 09:43 10/31/17 09:43 10/31/17 09:43 10/31/17 09:43 Course - Re-evaluation Re-evalutation: 10/31/17 13:15 Reevaluated and given Auralgan. Patient was informed no strenuous activity for complete bedrest No running no lifting heavy objects. No traveling long distance. And basically asked to do bedrest no sexual activities. - Vital Signs Vital signs: Temp Pulse Resp BP Pulse Ox 98.7 F 112 H 20 128/83 H 99 10/31/17 09:43 10/31/17 09:43 10/31/17 10:45 10/31/17 09:43 10/31/17 09:43 - Laboratory Result Diagrams: 10/31/17 10:23 10/31/17 10:23 Laboratory results interpreted by me: 10/31/17 10:23 Potassium 3.4 L - Diagnostic Test Radiology reviewed: Reports reviewed - Living intrauterine of 15 weeks according to radiologist Discharge - Discharge Clinical Impression: Threatened in early , Blood type O- Condition: Fair Disposition: HOME, SELF-CARE Instructions: Bleeding During Early ([facility]), Rhogam ([facility]) Referrals: KAUSHAL LONDON MD [Primary Care Provider] - Follow up as needed
[2017-10-31 10:54] LABS: ALANINE AMINOTRANSFERASE 14 U/L (9-52); ALBUMIN 4.2 g/dL (3.5-5.0); ALKALINE PHOSPHATASE 64 U/L (38-126); ANION GAP 8 (5-19); ASPARTATE AMINO TRANSFERASE 35 U/L (14-36); BILIRUBIN,DIRECT 0.3 mg/dL (0.0-0.4); BILIRUBIN,TOTAL 0.5 mg/dL (0.2-1.3); BLOOD UREA NITROGEN 7 mg/dL (7-20); CALCIUM 9.4 mg/dL (8.4-10.2); CARBON DIOXIDE 25 mmol/L (22-30); CHLORIDE 107 mmol/L (98-107); GLUCOSE 78 mg/dL (75-110); POTASSIUM 3.4 mmol/L (3.6-5.0); SODIUM 140.3 mmol/L (137-145); TOTAL PROTEIN 7.5 g/dL (6.3-8.2)
--- NOTE | 2017-10-31 11:50 | RADIOLOGY REPORT (SQ) ---
EXAM DESCRIPTION: U/S OB 14+ TA/1 GEST W/DOPPLER COMPLETED DATE/TIME: 10/31/2017 11:38 am REASON FOR STUDY: vaginal bleeding COMPARISON: 08/25/2017 TECHNIQUE: Static and Dynamic grayscale imaging performed of gravid uterus using transabdominal appr oach. Additional selected color Doppler and spectral images recorded. All stored on PACS. LIMITATIONS: None. FINDINGS: EGA: 15 weeks 0 days KEITH: 04/24/2018 EFW: Not calculated. Grams PERCENTILE: Not calculated. MARY: 3.6 PLACENTA: Anterior. GRADE: I PRESENTATION: Variable. ANATOMY: HEART RATE: 147 beats per minute. FOUR CHAMBER HEART: Visualized. THREE VESSEL CORD: Yes. CORD INSERTION: Visualized. KIDNEYS AND BLADDER: Visualized. Appear normal. STOMACH: Not well visualized. SPINE: Not well visualized. BRAIN AND LATERAL VENTRICLES: Visualized. Appear normal. OTHER: No other significant finding. MATERNAL ADNEXA: Maternal ovaries not visualized. CERVICAL LENGTH: 3.1 cm Closed. OTHER: No other significant finding. IMPRESSION: LIVING INTRAUTERINE . ESTIMATED GESTATIONAL AGE 15 weeks 0 days NO VISUALIZED ANOMALIES. Trimester of : Second trimester - 13 weeks 1 day to 27 weeks 6 days. TECHNICAL DOCUMENTATION: JOB ID: [id number] [employer]- All Rights Reserved Reading location - IP/workstation name: [email or web address]
[2017-10-31 13:36] LABS: APPEARANCE,URINE SLIGHTLY-CLOUDY; BILIRUBIN,URINE NEGATIVE (NEGATIVE); COLOR,URINE YELLOW; GLUCOSE, URINE NEGATIVE (NEGATIVE); KETONES,URINE TRACE mg/dL (NEGATIVE); LEUKOCYTE ESTERASE,URINE NEGATIVE (NEGATIVE); NITRITE,URINE NEGATIVE (NEGATIVE); PROTEIN,URINE NEGATIVE (NEGATIVE); URINE SPECIFIC GRAVITY 1.009; UROBILINOGEN,URINE NEGATIVE mg/dL (<2.0)
[2017-10-31 14:02] VITALS: BP 111/70
[2017-10-31] MEDS ORDERED: DIPHENHYDRAMINE HCL 50 MG CAPSULE PO ONE (14:09)
== END 2017-10-31 14:16 | disposition home or self-care (01) ==
LOC: ER 09:39
DX: O20.0 Threatened abortion (principal); Z3A.14 14 weeks gestation of pregnancy
CPT/HCPCS: 99284; 96372; 96360; 86900; 86901; 36415; 86850; 85025; 80053; 81001; 76805; 93976; J2790; J3490; J7030

== ENCOUNTER 2017-12-29 20:37 | Outpatient (CLI) | payer MEDICAID ==
[2017-12-29 21:21] LABS: AMNISURE (ROM) NEGATIVE (NEGATIVE)
[2017-12-29 21:22] LABS: APPEARANCE,URINE CLEAR; BILIRUBIN,URINE NEGATIVE (NEGATIVE); COLOR,URINE YELLOW; GLUCOSE, URINE NEGATIVE (NEGATIVE); KETONES,URINE NEGATIVE (NEGATIVE); LEUKOCYTE ESTERASE,URINE NEGATIVE (NEGATIVE); NITRITE,URINE NEGATIVE (NEGATIVE); PROTEIN,URINE NEGATIVE (NEGATIVE); URINE SPECIFIC GRAVITY 1.006; UROBILINOGEN,URINE NEGATIVE mg/dL (<2.0)
[2017-12-29 21:38] LABS: URINE AMPHETAMINES SCREEN NEGATIVE; URINE BARBITURATES SCREEN NEGATIVE; URINE BENZODIAZEPINES SCREEN NEGATIVE; URINE COCAINE SCREEN NEGATIVE; URINE MARIJUANA (THC) SCREEN NEGATIVE; URINE METHADONE SCREEN NEGATIVE; URINE PHENCYCLIDINE SCREEN NEGATIVE
--- NOTE | 2017-12-29 22:46 | RADIOLOGY REPORT (SQ) ---
EXAM DESCRIPTION: US LIMITED CLINICAL HISTORY: 22 years Female, cervical length 24wks pre term labor Comparison: None. LIMITATIONS: Targeted exam for requested OB parameters. FINDINGS: Cervical length: 5.3 cm, open appearance. position: Breech Cardiac activity: 140,131 bpm Placenta location: Anterior, no evidence of placenta previa, no abruption. IMPRESSION: Targeted exam for requested OB parameters.
== END 2017-12-29 23:53 | disposition home or self-care (01) ==
LOC: LC 20:37
PROVIDERS: ATTEND Obstetrics & Gynecology
PROC: 4A1HXCZ Monitoring of Products of Conception, Cardiac Rate, External Approach (ICD-10-PCS; principal; 2017-12-29)
DX: O47.02 False labor before 37 completed weeks of gestation, second trimester (principal); Z3A.24 24 weeks gestation of pregnancy
CPT/HCPCS: 76815; 80307; 81001; 84112

== ENCOUNTER 2017-12-30 07:42 | Outpatient (CLI) | payer MEDICAID ==
[2017-12-30 08:59] LABS: APPEARANCE,URINE SLIGHTLY-CLOUDY; BILIRUBIN,URINE NEGATIVE (NEGATIVE); COLOR,URINE YELLOW; GLUCOSE, URINE NEGATIVE (NEGATIVE); KETONES,URINE NEGATIVE (NEGATIVE); LEUKOCYTE ESTERASE,URINE TRACE (NEGATIVE); NITRITE,URINE NEGATIVE (NEGATIVE); PROTEIN,URINE NEGATIVE (NEGATIVE); UROBILINOGEN,URINE NEGATIVE mg/dL (<2.0)
[2017-12-30] MEDS ORDERED: IBUPROFEN 800 MG TABLET ONE (09:11)
--- NOTE | 2017-12-30 09:29 | L&D Progress Notes ---
PROGRESS NOTES Datetime Report Generated by LANNY: 12/30/2017 09:29 PROGRESS NOTE Comment: pt seen as a labor check last pm and sent home with PTL precautions, pt started cramping this am and came back. she has been NPO and under the assumption she she is going to have cerclage due to cervix opening up and she is afraid the cervix is open up and baby fall out, Discussed with Dr. Moya and she said have pt take Ibuprofen 800 TID x 3 days, pt and mother still confused, has disc in her hands and is upset this baby is going to deliver and no one is doing anything. Called Dr. Duran and he spoke with mother and pt, Dr. Duran called Dr. Moya and pt is to go to their office in [facility], may have to wait, but they will see her. Motrin 800 given to pt before she left. Pt and mother seemed relieved they are going to be seen today by MFM. Dr. Constantino on unit and discussing with Dr. Duran via phone and aware of plan. No uc's seen on monitor, told pt to go ahead and eat since she has low BS cause Dr. Moya said she would not do cerclage with cramping. Discussed S_S to report and use [facility] in lobby to avoid ER if she needs to return SIGNATURE SIGNATURE: [id number] Assignment: Veda Constantino MD Signature: with User ID: [email or web address] : with User ID: [email or web address]
[2017-12-30 09:34] LABS: URINE AMPHETAMINES SCREEN NEGATIVE; URINE BARBITURATES SCREEN NEGATIVE; URINE BENZODIAZEPINES SCREEN NEGATIVE; URINE COCAINE SCREEN NEGATIVE; URINE MARIJUANA (THC) SCREEN NEGATIVE; URINE METHADONE SCREEN NEGATIVE; URINE PHENCYCLIDINE SCREEN NEGATIVE
== END 2017-12-30 09:17 | disposition home or self-care (01) ==
LOC: LC 07:42
PROVIDERS: ATTEND Obstetrics & Gynecology
PROC: 4A1HXCZ Monitoring of Products of Conception, Cardiac Rate, External Approach (ICD-10-PCS; principal; 2017-12-30)
DX: O47.02 False labor before 37 completed weeks of gestation, second trimester (principal); Z3A.22 22 weeks gestation of pregnancy
CPT/HCPCS: 59899; 82962; 81001; 80307; J3490

== ENCOUNTER 2018-02-16 19:41 | Emergency (ER) | payer MEDICAID ==
[2018-02-16 19:48] VITALS: BP 139/86
== END 2018-02-16 22:15 | disposition left against medical advice (07) ==
LOC: ER 19:41
DX: Z53.21 Procedure and treatment not carried out due to patient leaving prior to being seen by health care provider (principal)

== ENCOUNTER 2018-02-17 20:27 | Emergency (ER) | payer MEDICAID ==
[2018-02-17] MEDS ORDERED: NORMAL SALINE 1000 ML 1,000 ML IV ONE (21:58)
--- NOTE | 2018-02-17 22:26 | ER Document Report ---
ED General - General Chief Complaint: Nausea/Vomiting Stated Complaint: VOMITING Time Seen by Provider: 02/17/18 21:55 Mode of Arrival: Ambulatory Information source: Patient Notes: Patient is a 22-year-old female who presents with chief complaint of nausea, vomiting and dysuria. Patient reports that she is 30 weeks and has been having a urinary tract infection intermittently for the last 3 months. Patient reports most recently she has been taking nitrofurantoin for the last 2 weeks. Patient has multiple antibiotic allergies to include penicillin, sulfa and vancomycin. Patient reports that she began vomiting about 2 hours prior to arrival, denies any low back pain, denies any fever. TRAVEL OUTSIDE OF THE [place] IN LAST 30 DAYS: No - Related Data Allergies/Adverse Reactions: Penicillins Allergy (Verified 12/29/17 21:18) Hives Sulfa (Sulfonamide Antibiotics) Allergy (Verified 12/29/17 21:18) Hives vancomycin [Vancomycin] Adverse Reaction (Verified 12/29/17 21:18) Urticaria Past Medical History - General Information source: Patient - Social History Smoking Status: Never Smoker Chew tobacco use (# tins/day): No Frequency of alcohol use: None Drug Abuse: None Family History: Reviewed & Not Pertinent, Hyperlipidemia, Hypertension, Thyroid Disfunction, Other - CAT Patient has suicidal ideation: No Patient has homicidal ideation: No - Past Medical History Cardiac Medical History: Denies: Hx Coronary Artery Disease, Hx Heart Attack, Hx Hypertension Pulmonary Medical History: Denies: Hx Asthma, Hx Bronchitis, Hx COPD, Hx Pneumonia Neurological Medical History: Denies: Hx Cerebrovascular Accident Endocrine Medical History: Renal/ Medical History: Reports: Hx Kidney Stones. Denies: Hx Peritoneal Dialysis Musculoskeletal Medical History: Denies Hx Arthritis Skin Medical History: Reports Hx Eczema, Reports Hx MRSA Past Surgical History: Reports: Hx Oral Surgery - jaw surgery,, Hx Orthopedic Surgery - hip surgery - Immunizations Immunizations up to date: Yes Hx Diphtheria, Pertussis, Tetanus Vaccination: Yes Review of Systems - Review of Systems Constitutional: No symptoms reported EENT: No symptoms reported Cardiovascular: No symptoms reported Respiratory: No symptoms reported Gastrointestinal: No symptoms reported Genitourinary: No symptoms reported Female Genitourinary: No symptoms reported Musculoskeletal: No symptoms reported Skin: No symptoms reported Hematologic/Lymphatic: No symptoms reported Neurological/Psychological: No symptoms reported Physical Exam - Vital signs Vitals: Temp Pulse Resp BP Pulse Ox 98.8 F 82 18 133/82 H 99 02/17/18 20:33 02/17/18 20:33 02/17/18 20:33 02/17/18 20:33 02/17/18 20:33 - Notes Notes: PHYSICAL EXAMINATION: GENERAL: Well-appearing, well-nourished and in no acute distress. HEAD: Atraumatic, normocephalic. EYES: Pupils equal round and reactive to light, extraocular movements intact, conjunctiva are normal. ENT: Nares patent, oropharynx clear without exudates. Moist mucous membranes. NECK: Normal range of motion, supple without lymphadenopathy LUNGS: Breath sounds clear to auscultation bilaterally and equal. No wheezes rales or rhonchi. HEART: Regular rate and rhythm without murmurs ABDOMEN: Soft, nontender, gravid abdomen. No guarding, no rebound. No masses appreciated. Female : No CVA tenderness on palpation. Musculoskeletal: Normal range of motion, no pitting or edema. No cyanosis. Mild tenderness to palpation to lumbar paraspinous muscles bilaterally. NEUROLOGICAL: Cranial nerves grossly intact. Normal speech, normal gait. Normal sensory, motor exams PSYCH: Normal mood, normal affect. SKIN: Warm, Dry, normal turgor, no rashes or lesions noted. Course - Re-evaluation Re-evalutation: 02/17/18 23:37 At this time nursing staff has still not obtained blood or urine specimens. Patient is resting without any distress. Will re-assess after labs obtained and resulted. Patient is an otherwise healthy well appearing 22-year-old female who presents with chief complaint of several days of low back pain. Patient reports that today she started vomiting approximately 2 hours prior to arrival. Patient reports that she has had a recent urinary tract infection for which she is receiving treatment by her INDUSTRIAL ENGINEERING TECHNICIAN. Patient reports that she is taking nitrofurantoin. Patient decided to come to the emergency department to make sure she is not having a kidney infection. Patient reports that her baby is moving as per normal and she has no concerns about that. CBC with leukocytosis with a left shift, likely secondary to vomiting. Comprehensive metabolic panel is unremarkable other than mild hypokalemia at 3.4. Urinalysis with small leukocytes, 1+ bacteria and moderate mucus. This picture appears to be more of a resolving UTI versus a pyelonephritis. Urine will be cultured. Patient reports that she feels well. Patient has not vomited since arrival to the department and has not been given any antiemetics. I will discharge patient home in stable condition. I will not start patient on a new antibiotic as her urine does not look overly concerning. She is already taking nitrofurantoin as directed by her INDUSTRIAL ENGINEERING TECHNICIAN and patient does have multiple antibiotic allergies. Patient will be instructed to follow-up with her OB on Tuesday. Patient will return to the emergency department if she develops fever, increased vomiting, abdominal pain or any other symptom that is concerning to her. - Vital Signs Vital signs: Temp Pulse Resp BP Pulse Ox 98.8 F 82 18 133/82 H 99 02/17/18 20:33 02/17/18 20:33 02/17/18 20:33 02/17/18 20:33 02/17/18 20:33 - Laboratory Result Diagrams: 02/17/18 23:52 02/18/18 00:33 Laboratory results interpreted by me: 02/17/18 02/17/18 02/18/18 21:17 23:52 00:33 WBC 12.2 H Hct 34.5 L Seg Neutrophils % 78.9 H Lymphocytes % 12.3 L Absolute Neutrophils 9.7 H Potassium 3.4 L Chloride 109 H BUN 4 L Creatinine 0.42 L Total Protein 6.0 L Albumin 3.1 L Ur Leukocyte Esterase SMALL H Discharge - Discharge Clinical Impression: Vomiting Qualifiers: Vomiting type: unspecified Vomiting Intractability: non-intractable Nausea presence: unspecified Qualified Code(s): R11.10 - Vomiting, unspecified Dysuria during Qualifiers: Trimester: second trimester Qualified Code(s): O26.892 - Other specified related conditions, second trimester; R30.0 - Dysuria; R30.0 - Dysuria Additional Instructions: VOMITING: Vomiting (or nausea without vomiting) can be caused by many other different problems. It can mean that something's wrong with the stomach, such as ulcers or inflammation or the intestinal tract, such as appendicitis. But it can also be a symptom of a problem that has nothing to do with the stomach or intestines. Vomiting is common with severe headaches, earaches, tonsillitis, and kidney infections, etc. We see it with pneumonia or heart attacks. Drugs can cause nausea and vomiting. Many abdominal problems cause vomiting; for example, gallstones, kidney stones, pancreatitis, and intestinal obstruction ( blocked bowels). In most cases, curing the vomiting depends on fixing the problem that caused it. For temporary relief, we may use an anti-nausea medicine. For home use, we can prescribe suppositories, chewable pills, pills that dissolve in the mouth, or liquid anti-nausea drugs. If the vomiting seems to be caused by a problem in the stomach, acid-suppressing drugs may be prescribed as well. It's important to avoid dehydration. Sip small amounts of clear liquids ( soft drinks, tea, broth, etc) . Try to take fluids frequently even if you are vomiting to prevent dehydration. Take increasing amounts of fluid and when liquids are being consumed successfully, advance to small amounts of bland food (toast, soups, mashed potatoes, etc.) until you are able to resume a regular diet. Avoid aspirin, tobacco, and alcohol. If the vomiting worsens, if the problem that's making you vomit worsens, or if there's evidence of bleeding in the stomach (such as black, tarry stool, or bloody or black vomit), you should return immediately. Also, return if abdominal pain worsens or becomes localized to one area or you develop high fever. Call your doctor if you aren't improved in 24 hours. INTRAVENOUS (I V) FLUIDS: As part of your care today, you received intravenous (IV) fluids. IV fluids are administered to patients who are dehydrated or to those who have certain chemical (electrolyte) abnormalities that need correcting. ANTINAUSEA MEDICATION: You have been given a medication to suppress nausea and vomiting. This type of medication can be given as a shot, pill, or suppository. It will usually last for many hours. Pills and shots usually last six to eight hours. For the typical illness, only one or two doses of the medication may be necessary. Mild lightheadedness may occur. This type of medicine can cause drowsiness. Do not drive or operate dangerous machinery while under its influence. Do not mix with alcohol. See your doctor at once if you have muscle spasms or tightness, or uncontrollable motions (particularly of the neck, mouth, or jaw). Persistent vomiting or severe lightheadedness should also be evaluated by the physician. FOLLOW-UP CARE: If you have been referred to a physician for follow-up care, call the physician s office for an appointment as you were instructed or within the next two days. If you experience worsening or a significant change in your symptoms, notify the physician immediately or return to the Emergency Department at any time for re-evaluation. Please follow-up with your INDUSTRIAL ENGINEERING TECHNICIAN on Tuesday. Please continue taking the antibiotic that you are already on for your resolving UTI. Return to the emergency department if you develop worsening vomiting, fever or abdominal pain. We are happy to reevaluate you at any time. Your potassium was mildly low today, please eat some bananas or drink some orange juice daily. Referrals: LATRICE JEFFERS MD [NO LOCAL MD] - Follow up as needed
[2018-02-18] LABS: APPEARANCE,URINE CLOUDY; BILIRUBIN,URINE NEGATIVE (NEGATIVE); COLOR,URINE YELLOW; GLUCOSE, URINE NEGATIVE (NEGATIVE); KETONES,URINE NEGATIVE (NEGATIVE); LEUKOCYTE ESTERASE,URINE SMALL (NEGATIVE); NITRITE,URINE NEGATIVE (NEGATIVE); PROTEIN,URINE NEGATIVE (NEGATIVE); URINE SPECIFIC GRAVITY 1.018; UROBILINOGEN,URINE NEGATIVE mg/dL (<2.0)
[2018-02-18 00:03] LABS: ABSOLUTE BASOPHILS # (AUTO) 0.1 10^3/uL (0.0-0.2); ABSOLUTE EOSINOPHILS # (AUTO) 0.3 10^3/uL (0.0-0.6); ABSOLUTE LYMPHOCYTES (AUTO) 1.5 10^3/uL (0.5-4.7); ABSOLUTE MONOCYTES (AUTO) 0.7 10^3/uL (0.1-1.4); ABSOLUTE NEUT (AUTO) 9.7 10^3/uL (1.7-8.2); BASOPHILS % (AUTO) 0.8 % (0-2); EOSINOPHILS % (AUTO) 2.2 % (0-6); HEMATOCRIT 34.5 % (36.0-47.0); HEMOGLOBIN 12.1 g/dL (12.0-15.5); LYMPHOCYTES % (AUTO) 12.3 % (13-45); MEAN CORPUSCULAR HEMOGLOBIN 30.6 pg (27.0-33.4); MEAN CORPUSCULAR VOLUME 88 fl (80-97); MONOCYTES % (AUTO) 5.8 % (3-13); PLATELET COUNT 214 10^3/uL (150-450); RED BLOOD COUNT 3.94 10^6/uL (3.72-5.28); SEGMENTED NEUTROPHILS % (AUTO) 78.9 % (42-78); TOTAL CELLS COUNTED % (AUTO) 100 %; WHITE BLOOD COUNT 12.2 10^3/uL (4.0-10.5)
[2018-02-18 00:55] LABS: ALANINE AMINOTRANSFERASE 17 U/L (9-52); ALBUMIN 3.1 g/dL (3.5-5.0); ALKALINE PHOSPHATASE 77 U/L (38-126); ANION GAP 11 (5-19); ASPARTATE AMINO TRANSFERASE 21 U/L (14-36); BILIRUBIN,DIRECT 0.2 mg/dL (0.0-0.4); BILIRUBIN,TOTAL 0.2 mg/dL (0.2-1.3); BLOOD UREA NITROGEN 4 mg/dL (7-20); CALCIUM 8.6 mg/dL (8.4-10.2); CARBON DIOXIDE 22 mmol/L (22-30); CHLORIDE 109 mmol/L (98-107); GLUCOSE 79 mg/dL (75-110); LIPASE 45.4 U/L (23-300); POTASSIUM 3.4 mmol/L (3.6-5.0); SODIUM 142.1 mmol/L (137-145)
[2018-02-18] MEDS ORDERED: ONDANSETRON ODT 4 MG TAB (6 TAB/ER DISP) PO PRN (01:32)
[2018-02-18 02:23] VITALS: BP 122/79
== END 2018-02-18 02:23 | disposition home or self-care (01) ==
LOC: ER 20:27
DX: O21.9 Vomiting of pregnancy, unspecified (principal); O26.893 Other specified pregnancy related conditions, third trimester; R30.0 Dysuria; Z3A.30 30 weeks gestation of pregnancy
CPT/HCPCS: 99283; 96360; 36415; 87086; 83690; 85025; 87088; 80053; 81001; 87186; J7030

== ENCOUNTER 2018-04-04 16:20 | Outpatient (CLI) | payer MEDICAID ==
[2018-04-04 17:04] LABS: AMORPHOUS SEDIMENT,URINE TRACE /HPF; APPEARANCE,URINE CLOUDY; BILIRUBIN,URINE NEGATIVE (NEGATIVE); COLOR,URINE YELLOW; GLUCOSE, URINE NEGATIVE (NEGATIVE); KETONES,URINE TRACE mg/dL (NEGATIVE); LEUKOCYTE ESTERASE,URINE SMALL (NEGATIVE); NITRITE,URINE NEGATIVE (NEGATIVE); PROTEIN,URINE NEGATIVE (NEGATIVE); URINE SPECIFIC GRAVITY 1.012; UROBILINOGEN,URINE NEGATIVE mg/dL (<2.0)
[2018-04-04 17:05] LABS: ABSOLUTE EOSINOPHILS # (AUTO) 0.1 10^3/uL (0.0-0.6); ABSOLUTE MONOCYTES (AUTO) 0.4 10^3/uL (0.1-1.4); ABSOLUTE NEUT (AUTO) 8.1 10^3/uL (1.7-8.2); BASOPHILS % (AUTO) 0.4 % (0-2); EOSINOPHILS % (AUTO) 0.9 % (0-6); HEMATOCRIT 33.6 % (36.0-47.0); HEMOGLOBIN 11.6 g/dL (12.0-15.5); MEAN CORPUSCULAR HEMOGLOBIN 29.5 pg (27.0-33.4); MEAN CORPUSCULAR HGB CONC 34.6 g/dL (32.0-36.0); MEAN CORPUSCULAR VOLUME 85 fl (80-97); MONOCYTES % (AUTO) 4.6 % (3-13); PLATELET COUNT 188 10^3/uL (150-450); RED BLOOD COUNT 3.95 10^6/uL (3.72-5.28); SEGMENTED NEUTROPHILS % (AUTO) 84.1 % (42-78); TOTAL CELLS COUNTED % (AUTO) 100 %; WHITE BLOOD COUNT 9.6 10^3/uL (4.0-10.5)
--- NOTE | 2018-04-04 17:11 | Non Stress Test Report ---
Non Stress Test Datetime Report Generated by CPN: 04/04/2018 17:11 DEMOGRAPHIC EGA NST: 36.2 INDICATION Indication for Study: Gestational Hypertension; Ordered by Provider Indication for Study (NST) Other: PRE-E W/U MONITORING Monitor Explained: Monitor Explained; Test Explained; Patient Verbalized Understanding Time on Monitor: 04/04/2018 16:36 Time off Monitor: 04/04/2018 17:10 NST Duration: 34 NST INTERVENTIONS NST Interventions: PO Hydration; Reposition Patient Physician Notified NST: C Hoffman CNM BABY A: [id number] BABY A Movement : Present Contraction Frequency : denies FHR Baseline : 130 Accelerations : 15X15 Decelerations : None Variability : Moderate 6-25bpm NST Review: Meets Criteria for Reactive NST NST Review and Verified By : Isabel Cordova RNC NST Results: Reactive NST REPORT Report Trigger: Send Report
[2018-04-04 17:19] LABS: URINE AMPHETAMINES SCREEN NEGATIVE; URINE BARBITURATES SCREEN NEGATIVE; URINE BENZODIAZEPINES SCREEN NEGATIVE; URINE COCAINE SCREEN NEGATIVE; URINE MARIJUANA (THC) SCREEN NEGATIVE; URINE METHADONE SCREEN NEGATIVE; URINE PHENCYCLIDINE SCREEN NEGATIVE
[2018-04-04 17:25] LABS: UR PRO/CREAT RATIO RESULT 0.2 mg/mg (0.0-0.2); URINE CREATININE 121.8 mg/dL (16-327); URINE PROTEIN 25.4 mg/dL (<12)
[2018-04-04 17:28] LABS: ALANINE AMINOTRANSFERASE 20 U/L (9-52); ALBUMIN 3.1 g/dL (3.5-5.0); ALKALINE PHOSPHATASE 98 U/L (38-126); ANION GAP 12 (5-19); ASPARTATE AMINO TRANSFERASE 29 U/L (14-36); BILIRUBIN,DIRECT 0.2 mg/dL (0.0-0.4); BILIRUBIN,TOTAL 0.2 mg/dL (0.2-1.3); BLOOD UREA NITROGEN 4 mg/dL (7-20); CALCIUM 8.8 mg/dL (8.4-10.2); CARBON DIOXIDE 20 mmol/L (22-30); CHLORIDE 107 mmol/L (98-107); GLUCOSE 124 mg/dL (75-110); SODIUM 138.9 mmol/L (137-145); TOTAL PROTEIN 6.1 g/dL (6.3-8.2); URIC ACID 4.6 mg/dL (2.5-6.2)
== END 2018-04-04 17:50 | disposition home or self-care (01) ==
LOC: LC 16:20
PROVIDERS: ATTEND Obstetrics & Gynecology Gynecology
PROC: 4A1HXCZ Monitoring of Products of Conception, Cardiac Rate, External Approach (ICD-10-PCS; principal; 2018-04-04)
DX: O13.3 Gestational [pregnancy-induced] hypertension without significant proteinuria, third trimester (principal); Z3A.36 36 weeks gestation of pregnancy
CPT/HCPCS: 36415; 59025; 80053; 80307; 81001; 82570; 83615; 84156; 84550; 85025

== ENCOUNTER 2018-04-12 15:51 | Inpatient (IN) | payer MEDICAID ==
[2018-04-12 16:49] LABS: APPEARANCE,URINE SLIGHTLY-CLOUDY; BILIRUBIN,URINE NEGATIVE (NEGATIVE); COLOR,URINE YELLOW; GLUCOSE, URINE NEGATIVE (NEGATIVE); KETONES,URINE 20 mg/dL (NEGATIVE); LEUKOCYTE ESTERASE,URINE TRACE (NEGATIVE); NITRITE,URINE NEGATIVE (NEGATIVE); PROTEIN,URINE NEGATIVE (NEGATIVE); URINE SPECIFIC GRAVITY 1.016; UROBILINOGEN,URINE NEGATIVE mg/dL (<2.0)
[2018-04-12 17:05] LABS: URINE AMPHETAMINES SCREEN NEGATIVE; URINE BARBITURATES SCREEN NEGATIVE; URINE BENZODIAZEPINES SCREEN NEGATIVE; URINE COCAINE SCREEN NEGATIVE; URINE MARIJUANA (THC) SCREEN NEGATIVE; URINE METHADONE SCREEN NEGATIVE; URINE PHENCYCLIDINE SCREEN NEGATIVE
--- NOTE | 2018-04-12 17:07 | Non Stress Test Report ---
Non Stress Test Datetime Report Generated by CPN: 04/12/2018 17:07 DEMOGRAPHIC EGA NST: 37.3 INDICATION Indication for Study (NST) Other: PIH work up VITAL SIGNS Pulse - NST: 83 RESP - NST: 18 NBPSYS NST: 129 NBPDIA NST: 80 MONITORING Monitor Explained: Monitor Explained; Test Explained; Patient Verbalized Understanding Time on Monitor: 04/12/2018 16:43 Time off Monitor: 04/12/2018 17:03 NST Duration: 20 NST INTERVENTIONS NST Interventions: PO Hydration Physician Notified NST: K. Carey, CNM BABY A: [id number] BABY A Movement : Present Contraction Frequency : 0 FHR Baseline : 135 Accelerations : 15X15 Variability : Moderate 6-25bpm NST Review: Meets Criteria for Reactive NST NST Review and Verified By : Isabel Camp RNC NST Results: Reactive NST REPORT Report Trigger: Send Report
[2018-04-12 17:37] LABS: ABSOLUTE EOSINOPHILS # (AUTO) 0.1 10^3/uL (0.0-0.6); ABSOLUTE LYMPHOCYTES (AUTO) 1.2 10^3/uL (0.5-4.7); ABSOLUTE MONOCYTES (AUTO) 0.7 10^3/uL (0.1-1.4); BASOPHILS % (AUTO) 0.4 % (0-2); EOSINOPHILS % (AUTO) 0.9 % (0-6); HEMATOCRIT 33.1 % (36.0-47.0); HEMOGLOBIN 11.4 g/dL (12.0-15.5); LYMPHOCYTES % (AUTO) 12.3 % (13-45); MEAN CORPUSCULAR HEMOGLOBIN 29.3 pg (27.0-33.4); MEAN CORPUSCULAR HGB CONC 34.5 g/dL (32.0-36.0); MEAN CORPUSCULAR VOLUME 85 fl (80-97); MONOCYTES % (AUTO) 6.8 % (3-13); PLATELET COUNT 188 10^3/uL (150-450); RED BLOOD COUNT 3.89 10^6/uL (3.72-5.28); RED CELL DISTRIBUTION WIDTH 13.2 % (11.5-14.0); SEGMENTED NEUTROPHILS % (AUTO) 79.6 % (42-78); TOTAL CELLS COUNTED % (AUTO) 100 %
[2018-04-12 17:56] LABS: UR PRO/CREAT RATIO RESULT 0.1 mg/mg (0.0-0.2); URINE CREATININE 150.9 mg/dL (16-327)
[2018-04-12 17:59] LABS: ALANINE AMINOTRANSFERASE 30 U/L (9-52); ALBUMIN 3.2 g/dL (3.5-5.0); ALKALINE PHOSPHATASE 104 U/L (38-126); ANION GAP 9 (5-19); ASPARTATE AMINO TRANSFERASE 40 U/L (14-36); BILIRUBIN,DIRECT 0.2 mg/dL (0.0-0.4); BILIRUBIN,TOTAL 0.2 mg/dL (0.2-1.3); BLOOD UREA NITROGEN 3 mg/dL (7-20); CALCIUM 8.8 mg/dL (8.4-10.2); CARBON DIOXIDE 21 mmol/L (22-30); CHLORIDE 109 mmol/L (98-107); GLUCOSE 75 mg/dL (75-110); SODIUM 139.4 mmol/L (137-145); TOTAL PROTEIN 6.2 g/dL (6.3-8.2); URIC ACID 4.5 mg/dL (2.5-6.2)
[2018-04-12 18:00] LABS: POTASSIUM 3.1 mmol/L (3.6-5.0)
--- NOTE | 2018-04-12 18:33 | Admission Physical ---
Datetime Report Generated by CPN: 04/12/2018 18:32 CURRENT ADMISSION Chief Complaint: Other Chief Complaint Other: Elevated blood pressure and headache Indication for Induction: Not Applicable Admit Impression : Observation/Evaluation Admit Impression- Other: Elevated blood pressures, check 24 hour urine Admit Plan: Admit to Unit; Observation/Evaluation ALLERGIES Medication Allergies: Yes Medication Allergies: Penicillins/Hives (04/12/2018); Sulfa (Sulfonamide Antibiotics)/Hives (04/12/2018); vancomycin/Urticaria (04/12/2018) Latex: No Latex Allergies OBSTETRICAL HISTORY EDC: 04/30/2018 00:00 : 2 Para: 0 Term: 0 : 0 SAB: 1 IAB: 0 Ectopic: 0 Livin Cesareans: 0 VBACs: 0 Multiple Births: 0 Gestational Diabetes: No Rh Sensitization: No Incompetent Cervix: No EDY: No Infertility: No ART Treatment: No Uterine Anomaly: No IUGR: No Hx Previous C/S: No Macrosomia: No Hx Loss/Stillborn: No PIH: No Hx : No Placenta Previa/Abruption: No Depression/PP Depression: No PTL/PROM: No Post Hemorrhage: No Current Procedures: Ultrasound Obstetrical History Comments: G1: 2014 SAB G2: Current, late pnc, very low AFP on quad screen (0.04) SEE RECORDS Alcohol: No Marijuana : No Cocaine: No Other Illicit Drugs: No Cigarettes: Never Smoker. 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 (test pending), INFECTIOUS HISTORY Gonorrhea: No Genital Herpes: No Chlamydia: Yes Tuberculosis: No Syphilis: No Hepatitis: No HIV/AIDS Exposure: No Rash or Viral Illness: No HPV: No Infectious History Comments: chlam 12/06/2017, BRYANT pending as of 12/30/17 PHYSICAL EXAM General: Normal HEENT: Normal Neurologic: Normal Thyroid: Normal Heart: Normal Lungs: Normal Breast: Deferred Back: Normal Abdomen: Normal Genitourinary Exam: Deferred Extremities: Normal DTRs: Normal Pelvic Type: Adequate Vital Signs: Reviewed MEMBRANES Pooling: Negative Membranes: Intact FETUS A EGA: 37.3 FHR- Baseline: 140 Variability: Moderate 6-25bpm Accelerations: 15X15 Decelerations: None FHR Category: Category I Admit Comment: check 24 hour urine and blood pressures. May move to the floor. PLANS FOR LABOR AND DELIVERY Labor and Delivery: None Pain Management: Natural Feeding Preference: Breast Benefit of Breast Feed Discussed: Yes Circumcision: Yes INFORMED CONSENT Signature: with User ID: [email or web address]
[2018-04-12] MEDS ORDERED: ACETAMINOPHEN 325 MG TABLET PO PRN (18:44)
[2018-04-12] MEDS ORDERED: AZITHROMYCIN INJ 500 MG VIAL IV ONE ×2 (19:21)
--- NOTE | 2018-04-13 10:51 | PDOC PROGRESS REPORT ---
Subjective Progress Note for:: 04/13/18 Subjective:: pt denies BAUGH or other problems Reason For Visit: HYPERTENSION AND HEADACHE/ Physical Exam - Physical Exam Vital Signs: Temp Pulse Resp BP Pulse Ox 97.7 F 70 18 114/66 99 04/13/18 03:26 04/13/18 03:26 04/13/18 03:26 04/13/18 03:26 04/13/18 03:26 Intake & Output 04/12/18 04/13/18 04/14/18 06:59 06:59 06:59 Weight 118.3 kg General appearance: PRESENT: no acute distress - DTR's wnl Result Laboratory Results: 04/12/18 17:15 04/12/18 17:15 04/12/18 04/12/18 04/12/18 16:07 17:15 17:15 WBC 10.0 RBC 3.89 Hgb 11.4 L Hct 33.1 L MCV 85 MCH 29.3 MCHC 34.5 RDW 13.2 Plt Count 188 Seg Neutrophils % 79.6 H Lymphocytes % 12.3 L Monocytes % 6.8 Eosinophils % 0.9 Basophils % 0.4 Absolute Neutrophils 8.0 Absolute Lymphocytes 1.2 Absolute Monocytes 0.7 Absolute Eosinophils 0.1 Absolute Basophils 0.0 Sodium 139.4 Potassium 3.1 L Chloride 109 H Carbon Dioxide 21 L Anion Gap 9 BUN 3 L Creatinine 0.48 L Est GFR ( Amer) > 60 Est GFR (Non-Af Amer) > 60 Glucose 75 Uric Acid 4.5 Calcium 8.8 Total Bilirubin 0.2 AST 40 H ALT 30 Alkaline Phosphatase 104 Total Protein 6.2 L Albumin 3.2 L Urine Color YELLOW Urine Appearance SLIGHTLY-CLOUDY Urine pH 6.0 Ur Specific [place] 1.016 Urine Protein NEGATIVE Urine Glucose (UA) NEGATIVE Urine Ketones 20 H Urine Blood NEGATIVE Urine Nitrite NEGATIVE Ur Leukocyte Esterase TRACE H Urine WBC (Auto) 4 Urine RBC (Auto) 2 Assessment & Plan - Diagnosis (1) Qualifiers: Weeks of gestation: 37 weeks Qualified Code(s): Z3A.37 - 37 weeks gestation of Is this a current diagnosis for this admission?: Yes (2) Hypertension affecting Qualifiers: Trimester: third trimester Qualified Code(s): O16.3 - Unspecified maternal hypertension, third trimester Is this a current diagnosis for this admission?: Yes (3) Headache Qualifiers: Headache chronicity pattern: acute headache Is this a current diagnosis for this admission?: Yes - Plan Summary Plan Summary: waiting for 24 hour urine to be complete
[2018-04-13] MEDS: ERYTHROMYCIN BASE 250 MG TABLET PO SCH ×2 (11:59→17:52)
[2018-04-13 18:52] LABS: URINE PROTEIN 22.7 mg/dL (<12)
[2018-04-13 18:55] LABS: 24 HOUR URINE PROTEIN RESULT 477 mg/day (42-225); 24 HR URINE CREAT RESULT 1.3 mg/day (0.8-2.0)
[2018-04-14] MEDS: ERYTHROMYCIN BASE 250 MG TABLET PO SCH ×3 (00:55→11:47)
--- NOTE | 2018-04-14 13:41 | PDOC PROGRESS REPORT ---
Subjective-OB Progress Note for:: 04/14/18 Subjective: IUP @ 37w5d. Reports headache has not improve despite tylenol x2 days. Reports hx of cluster migraines but this is nothing like it. States pain is "annoying" and 3/5 all frontal. Denies other s/s of pre-e Physical Exam (OB) Vital Signs: Temp Pulse Resp BP Pulse Ox 98.3 F 82 20 146/95 H 98 04/14/18 12:00 04/14/18 12:00 04/14/18 12:00 04/14/18 12:00 04/14/18 12:00 Intake & Output 04/13/18 04/14/18 04/15/18 06:59 06:59 06:59 Intake Total 1000 Balance 1000 Weight 118.3 kg - General General Appearance: Appears well In distress: None - PIH/Pre-Eclampsia DTR's: 2 + Clonus: Negative Headache: Present Epigastric Pain: No Visual Changes: No - Abdomen Hernia Present: No - Respiratory Respiratory Status: No respiratory distress - Genitourinary Speculum exam: Other - cervix closed/post/-2 posterior Objective-Diagnostic Laboratory: 04/12/18 17:15 04/12/18 17:15 04/13/18 17:45 Ur 24 Hour Volume 2100 Ur Total Protein 24 Hr 477 H Assessment and Plan(PN) - Assessment and Plan (1) Pre-eclampsia affecting , antepartum Is this a current diagnosis for this admission?: Yes Plan: reviewed labs and dx made. Discussed with Dr. Constantino, Will transfer to L&D this afternoon for cervical ripening tonight.Pt. asked questions and verbalized understanding. (2) Qualifiers: Weeks of gestation: 37 weeks Qualified Code(s): Z3A.37 - 37 weeks gestation of Is this a current diagnosis for this admission?: Yes Plan: will transfer to labor and delivery for IOL tonight (3) Hypertension affecting Qualifiers: Trimester: third trimester Qualified Code(s): O16.3 - Unspecified maternal hypertension, third trimester Is this a current diagnosis for this admission?: Yes Plan: continue to monitor, IOL tonight. (4) Headache Qualifiers: Headache type: unspecified Headache chronicity pattern: unspecified pattern Is this a current diagnosis for this admission?: Yes Plan: continue to monitor, IOL tonight - Time Spent with Patient Time with patient: Less than 15 minutes Medications reviewed and adjusted accordingly: Yes - Disposition Anticipated Discharge: Other - to L&D this afternoon Within: within 24 hours
[2018-04-14] MEDS ORDERED: AZITHROMYCIN INJ 500 MG VIAL IV ONE (15:03)
[2018-04-14] MEDS ORDERED: OXYTOCIN/NORMAL SALINE 20 UNIT/1,000 ML RTUINJ IV PRN (15:16)
[2018-04-14] MEDS ORDERED: DINOPROSTONE 10 MG VAGINAL INSERT.SR PV PRN (15:16)
[2018-04-14] MEDS ORDERED: RINGERS SOLUTION,LACTATED 300 ML IV ONE (15:16)
[2018-04-14] MEDS ORDERED: AZITHROMYCIN 1 GM SUSP PACKET PO ONE (15:40)
[2018-04-14] MEDS ORDERED: DINOPROSTONE 10 MG VAGINAL INSERT.SR ONE (15:43)
[2018-04-14] MEDS ORDERED: AZITHROMYCIN 1 GM SUSP PACKET ONE (15:53)
[2018-04-14] MEDS: RINGERS SOLUTION,LACTATED 1,000 ML IV PRN (16:03)
[2018-04-14 16:11] LABS: CHLAM PCR NOT DETECTED (NOT DETECT); GON PCR NOT DETECTED (NOT DETECT)
--- NOTE | 2018-04-14 16:30 | Admission Physical ---
Datetime Report Generated by CPN: 04/14/2018 16:30 CURRENT ADMISSION Hx Assessment: The History has been Reviewed and is Current Chief Complaint: Scheduled Induction of Labor Chief Complaint Other: Elevated blood pressure and headache Indication for Induction: PreEclampsia Admit Impression : Term, Intrauterine Admit Impression- Other: Elevated blood pressures, check 24 hour urine Admit Plan: Initiate Labor Induction Protocol ALLERGIES Medication Allergies: Yes Medication Allergies: Penicillins/Hives (04/12/2018); Sulfa (Sulfonamide Antibiotics)/Hives (04/12/2018); vancomycin/Urticaria (04/12/2018) Latex: No Latex Allergies Food Allergies: N/A Environmental Allergies: N/A OBSTETRICAL HISTORY EDC: 04/30/2018 00:00 : 2 Para: 0 Term: 0 : 0 SAB: 1 IAB: 0 Ectopic: 0 Livin Cesareans: 0 VBACs: 0 Multiple Births: 0 Gestational Diabetes: No Rh Sensitization: No Incompetent Cervix: No EDY: No Infertility: No ART Treatment: No Uterine Anomaly: No IUGR: No Hx Previous C/S: No Macrosomia: No Hx Loss/Stillborn: No PIH: No Hx : No Placenta Previa/Abruption: No Depression/PP Depression: No PTL/PROM: No Post Hemorrhage: No Current Procedures: Ultrasound Obstetrical History Comments: G1: 2014 G2: Current, late pnc, very low AFP on quad screen (0.04) SEE RECORDS Alcohol: No Marijuana : No Cocaine: No Other Illicit Drugs: No Cigarettes: Never Smoker. 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 (test pending), INFECTIOUS HISTORY Gonorrhea: No Genital Herpes: No Chlamydia: Yes Tuberculosis: No Syphilis: No Hepatitis: No HIV/AIDS Exposure: No Rash or Viral Illness: No HPV: No Infectious History Comments: chlam 12/06/2017, BRYANT pending as of 12/30/17 PHYSICAL EXAM General: Normal HEENT: Normal Neurologic: Normal Thyroid: Normal Heart: Normal Lungs: Normal Breast: Deferred Back: Normal Abdomen: Normal Genitourinary Exam: Normal Extremities: Normal DTRs: Normal Pelvic Type: Adequate Vital Signs: Reviewed Details Vital Signs: mild range-normal bp VAGINAL EXAM Dilatation: 0 Effacement: 0 Station: -2 MEMBRANES Pooling: Negative Membranes: Intact FETUS A EGA: 37.5 Monitoring: External US FHR- Baseline: 140 Variability: Moderate 6-25bpm Accelerations: 15X15 Decelerations: None FHR Category: Category I Presentation: Vertex Admit Comment: 22yo admitted from for IOL secondary to preeclampsia. Pt. was 24hr observation with 24hr urine collection that was resulted as 477mg protein. Pt. has had a frontal headache since admission that has not improved and actually worsen today. Discussed with Dr. Constantino who agreed with IOL tonight. Pt. denies all other s/s of pre-e, no edema. Pt. is A negative, GBS positive and positive chlamydia all throughout (01/05,04/04) was started on antibiotics again on 04/12-cultures obtained earlier today and still pending. will treat one more time on admission. Pt. also seen by MFM during for genetic workup due to abnormal multiple marker screen (SLOS). 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 Hx also significant for obesity and MRSA in 2012 and 2015. Pt. denies other significant hx or concerns today. Will place cervidil at this time. PLANS FOR LABOR AND DELIVERY Labor and Delivery: None Pain Management: Natural Feeding Preference: Breast Benefit of Breast Feed Discussed: Yes Circumcision: Yes INFORMED CONSENT Assignment: Veda Constantino MD Signature: with User ID: [email or web address] : with User ID: [email or web address]
[2018-04-14] MEDS ORDERED: BUTALB/ACETAMINOPHEN/CAFFEINE 1 TAB EACH PO ONE (18:04)
[2018-04-14] MEDS ORDERED: BUTALB/ACETAMINOPHEN/CAFFEINE 1 TAB EACH ONE (18:09)
[2018-04-14] MEDS ORDERED: ZOLPIDEM TARTRATE 5 MG TABLET ONE (20:57)
[2018-04-14] MEDS ORDERED: ZOLPIDEM TARTRATE 5 MG TABLET PO ONE (22:00)
[2018-04-14 23:05] LABS: APPEARANCE,URINE CLOUDY; BILIRUBIN,URINE NEGATIVE (NEGATIVE); COLOR,URINE YELLOW; GLUCOSE, URINE NEGATIVE (NEGATIVE); KETONES,URINE NEGATIVE (NEGATIVE); LEUKOCYTE ESTERASE,URINE TRACE (NEGATIVE); NITRITE,URINE NEGATIVE (NEGATIVE); PROTEIN,URINE NEGATIVE (NEGATIVE); URINE SPECIFIC GRAVITY 1.012; UROBILINOGEN,URINE NEGATIVE mg/dL (<2.0)
[2018-04-14 23:20] LABS: URINE AMPHETAMINES SCREEN NEGATIVE; URINE BARBITURATES SCREEN NEGATIVE; URINE BENZODIAZEPINES SCREEN NEGATIVE; URINE MARIJUANA (THC) SCREEN NEGATIVE; URINE METHADONE SCREEN NEGATIVE; URINE PHENCYCLIDINE SCREEN NEGATIVE
[2018-04-14 23:26] LABS: URINE COCAINE SCREEN NEGATIVE
[2018-04-15] MEDS ORDERED: LOPERAMIDE HCL 2 MG CAPSULE ONE (00:53)
[2018-04-15] MEDS ORDERED: LOPERAMIDE HCL 2 MG CAPSULE PO ONE (01:30)
[2018-04-15] MEDS ORDERED: NALBUPHINE HCL INJ 10 MG/1 ML AMPULE ONE ×3 (02:51→11:31)
[2018-04-15] MEDS ORDERED: PROMETHAZINE HCL INJ 25 MG/1 ML VIAL ONE (02:51)
[2018-04-15] MEDS ORDERED: PROMETHAZINE HCL INJ 25 MG/1 ML VIAL IV ONE (03:45)
[2018-04-15] MEDS ORDERED: NALBUPHINE HCL INJ 10 MG/1 ML AMPULE INJ ONE (03:45)
[2018-04-15] MEDS ORDERED: PENICILLIN G-K 5 MILLION UNIT VIAL ONE (06:47)
[2018-04-15] MEDS ORDERED: OXYTOCIN/NORMAL SALINE 20 UNIT/1,000 ML RTUINJ ONE ×2 (06:47→21:00)
--- NOTE | 2018-04-15 08:35 | L&D Progress Notes ---
PROGRESS NOTES Datetime Report Generated by CPN: 04/15/2018 08:34 PROGRESS NOTE Impression Other: Labor induction for preeclampsia Procedures: Sterile Vag Exam Plan: Continue Present Management Vital Signs : Reviewed VAGINAL EXAM Dilatation: 1 Dilatation: 0 Effacement: 75 Effacement: 0 Station: -3 Station: -2 Contractions: q 1-3 min MEMBRANES Pooling: Negative Membranes: Intact Membranes: Intact Membranes: Intact FETUS A FHR - Baseline: 135 Monitoring: External US Variability: Moderate 6-25bpm Accelerations: 15X15 Decelerations: None FHR Category: Category I Presentation: Vertex SIGNATURE SIGNATURE: [id number];10,[id number];14,[id number] SIGNATURE: 14,[id number];10,[id number];,[id number] SIGNATURE: 13,[id number];10,[id number];14,[id number] SIGNATURE: 14,[id number];,[id number] SIGNATURE: ,[id number];14,[id number] SIGNATURE: 14,[id number];10,[id number] Signature: with User ID: [email or web address]
[2018-04-15] MEDS ORDERED: FENTANYL CITRATE INJ/PF 100 MCG/2 ML AMPUL ONE (09:12)
[2018-04-15] MEDS ORDERED: PHENYLEPHRINE HCL INJ/PF 10 MG/1 ML SDV ONE (09:12)
[2018-04-15] MEDS ORDERED: MISOPROSTOL 0.1 MG TABLET ONE ×2 (09:12→14:02)
[2018-04-15] MEDS ORDERED: EPHEDRINE SULFATE INJ 50 MG/1 ML AMPULE ONE (09:13)
[2018-04-15] MEDS ORDERED: FENTANYL/BUPIVACAINE/NS/PF 300 MCG/150 ML RTUINJ EPI ONE (09:14)
[2018-04-15] MEDS ORDERED: BUPIVACAINE HCL 0.5 % INJ/PF 30 ML SDV ONE (09:14)
[2018-04-15 10:17] LABS: HEMATOCRIT 33.9 % (36.0-47.0); HEMOGLOBIN 11.7 g/dL (12.0-15.5); MEAN CORPUSCULAR HEMOGLOBIN 29.2 pg (27.0-33.4); MEAN CORPUSCULAR HGB CONC 34.6 g/dL (32.0-36.0); MEAN CORPUSCULAR VOLUME 85 fl (80-97); PLATELET COUNT 203 10^3/uL (150-450); RED BLOOD COUNT 4.01 10^6/uL (3.72-5.28); RED CELL DISTRIBUTION WIDTH 13.3 % (11.5-14.0); WHITE BLOOD COUNT 10.6 10^3/uL (4.0-10.5)
[2018-04-15 10:39] LABS: ALANINE AMINOTRANSFERASE 24 U/L (9-52); ALBUMIN 3.2 g/dL (3.5-5.0); ALKALINE PHOSPHATASE 117 U/L (38-126); ANION GAP 9 (5-19); ASPARTATE AMINO TRANSFERASE 31 U/L (14-36); BILIRUBIN,DIRECT 0.2 mg/dL (0.0-0.4); BILIRUBIN,TOTAL 0.2 mg/dL (0.2-1.3); BLOOD UREA NITROGEN 3 mg/dL (7-20); CALCIUM 9.2 mg/dL (8.4-10.2); CARBON DIOXIDE 20 mmol/L (22-30); CHLORIDE 111 mmol/L (98-107); GLUCOSE 72 mg/dL (75-110); POTASSIUM 3.3 mmol/L (3.6-5.0); TOTAL PROTEIN 6.3 g/dL (6.3-8.2); URIC ACID 4.7 mg/dL (2.5-6.2)
[2018-04-15] MEDS: RINGERS SOLUTION,LACTATED 1,000 ML IV PRN ×2 (11:13→18:41)
[2018-04-15] MEDS ORDERED: NALBUPHINE HCL INJ 10 MG/1 ML AMPULE INJ PRN (11:33)
[2018-04-15] MEDS: MISOPROSTOL 0.1 MG TABLET PO SCH (14:12)
[2018-04-15] MEDS: MISOPROSTOL 0.1 MG TABLET PV SCH (14:13)
[2018-04-15] MEDS ORDERED: OXYTOCIN/NORMAL SALINE 20 UNIT/1,000 ML RTUINJ IV PRN (18:27)
--- NOTE | 2018-04-15 18:31 | L&D Progress Notes ---
PROGRESS NOTES Datetime Report Generated by CPN: 04/15/2018 18:30 PROGRESS NOTE Impression Other: IOL for preeclampsia Procedures: Artificial ROM; Sterile Vag Exam Plan Other: Start Pitocin Vital Signs : Reviewed VAGINAL EXAM Dilatation: 3 Effacement: 50 Station: -2 Contractions: q 1-2 min MEMBRANES Membranes: Ruptured Amniotic Fluid Color: Clear FETUS A FHR - Baseline: 125 Monitoring: External US Variability: Moderate 6-25bpm Accelerations: 15X15 Decelerations: None FHR Category: Category I FETUS C SIGNATURE: [id number];10,[id number];13,[id number] Signature: with User ID: [email or web address]
[2018-04-15 19:17] LABS: ABSOLUTE BASOPHILS # (AUTO) 0.1 10^3/uL (0.0-0.2); ABSOLUTE EOSINOPHILS # (AUTO) 0.1 10^3/uL (0.0-0.6); ABSOLUTE LYMPHOCYTES (AUTO) 1.4 10^3/uL (0.5-4.7); ABSOLUTE MONOCYTES (AUTO) 0.8 10^3/uL (0.1-1.4); ABSOLUTE NEUT (AUTO) 7.4 10^3/uL (1.7-8.2); BASOPHILS % (AUTO) 0.6 % (0-2); EOSINOPHILS % (AUTO) 1.3 % (0-6); HEMATOCRIT 33.7 % (36.0-47.0); HEMOGLOBIN 11.7 g/dL (12.0-15.5); LYMPHOCYTES % (AUTO) 14.5 % (13-45); MEAN CORPUSCULAR HEMOGLOBIN 29.2 pg (27.0-33.4); MEAN CORPUSCULAR HGB CONC 34.7 g/dL (32.0-36.0); MEAN CORPUSCULAR VOLUME 84 fl (80-97); MONOCYTES % (AUTO) 8.2 % (3-13); PLATELET COUNT 178 10^3/uL (150-450); RED CELL DISTRIBUTION WIDTH 13.2 % (11.5-14.0); SEGMENTED NEUTROPHILS % (AUTO) 75.4 % (42-78); TOTAL CELLS COUNTED % (AUTO) 100 %; WHITE BLOOD COUNT 9.8 10^3/uL (4.0-10.5)
[2018-04-15 19:34] LABS: ALANINE AMINOTRANSFERASE 27 U/L (9-52); ALBUMIN 3.2 g/dL (3.5-5.0); ALKALINE PHOSPHATASE 109 U/L (38-126); ANION GAP 8 (5-19); ASPARTATE AMINO TRANSFERASE 30 U/L (14-36); BILIRUBIN,DIRECT 0.2 mg/dL (0.0-0.4); BILIRUBIN,TOTAL 0.3 mg/dL (0.2-1.3); BLOOD UREA NITROGEN 4 mg/dL (7-20); CALCIUM 9.3 mg/dL (8.4-10.2); CARBON DIOXIDE 20 mmol/L (22-30); CHLORIDE 109 mmol/L (98-107); GLUCOSE 84 mg/dL (75-110); POTASSIUM 3.5 mmol/L (3.6-5.0); SODIUM 137.2 mmol/L (137-145); TOTAL PROTEIN 6.2 g/dL (6.3-8.2); URIC ACID 4.2 mg/dL (2.5-6.2)
[2018-04-15] MEDS ORDERED: CLINDAMYCIN 900 MG/D5W RTU 900 MG/50 ML RTUPB IV ONE (20:31)
[2018-04-15] MEDS ORDERED: CLINDAMYCIN 900 MG/D5W RTU 900 MG/50 ML RTUPB IV SCH (21:00)
[2018-04-16] MEDS ORDERED: LIDOCAINE 1% INJ-PF (10 MG/ML) 30 ML SDV ONE (01:00)
[2018-04-16] MEDS ORDERED: MISOPROSTOL 0.2 MG TABLET ONE (01:00)
[2018-04-16] MEDS ORDERED: ZOLPIDEM TARTRATE 5 MG TABLET PO PRN (01:19)
[2018-04-16] MEDS ORDERED: DIBUCAINE 1% OINTMENT 28 GM TP PRN (01:19)
[2018-04-16] MEDS ORDERED: OXYTOCIN/NORMAL SALINE 20 UNIT/1,000 ML RTUINJ IV PRN (01:19)
[2018-04-16] MEDS ORDERED: HYDROCODONE/ACETAMINOPHEN 5-325 MG TABLET PO PRN (01:19)
[2018-04-16] MEDS ORDERED: DIPH/PERTUSS(ACELL)/TETANUS VAC/PF 0.5 ML SYR (>=10YO) IM PRN (01:19)
[2018-04-16] MEDS ORDERED: BENZOCAINE/MENTHOL AEROSOL SPRAY 56 ML TOP PRN (01:19)
[2018-04-16] MEDS ORDERED: MEASLES,MUMPS&RUBELLA VACC/PF 0.5 ML VIAL SUBCUT PRN (01:19)
[2018-04-16] MEDS ORDERED: ONDANSETRON HCL 8 MG TABLET PO PRN (01:21)
[2018-04-16] MEDS ORDERED: DIPHENHYDRAMINE HCL 25 MG CAPSULE PO PRN (01:21)
[2018-04-16] MEDS ORDERED: IBUPROFEN 800 MG TABLET ONE (02:06)
[2018-04-16] MEDS: MISOPROSTOL 0.1 MG TABLET PO SCH (04:07)
[2018-04-16] MEDS: MISOPROSTOL 0.1 MG TABLET PV SCH (04:08)
--- NOTE | 2018-04-16 04:37 | Delivery Summary ---
Del Sum A-C Datetime Report Generated by CPN: 04/16/2018 04:36 DELIVERY PERSONNEL DELIVERY PERSONNEL: [id number] Delivery Doctor:: Rukhsana Tello MD Labor and Delivery Nurse:: Isa Horton RNautomation mechanic Nurse:: Ira Hauser RN Fashion Show Director/LUMBER STRAIGHTENED: Martinkelly Ramos, LUMBER STRAIGHTENED MATERNAL INFORMATION Delivery Anesthesia: Epidural Medications After Delivery: Pitocin Bolus-Please Comment; Cytotec 1000mcg Per Rectum/Vagina Meds After Delivery Comment: Pitocin 20 units/1000 ml NS Estimated Blood Loss (ml): 300 Maternal Complications: None LABOR SUMMARY EDC: 04/30/2018 00:00 No. Babies in Womb: 1 Attempted: No Labor Anesthesia: Epidural LABOR INFORMATION Reason for Induction: Pre-Eclampsia Onset of Labor: 04/15/2018 23:33 Complete Dilatation: 04/16/2018 00:16 Cervical Ripening Agents: Cervidil; Cytotec @ Oxytocin: Induction Group B Beta Strep: POSITIVE Antibiotics # of Doses: 1 Antibiotics Time of Last Dose: 2135 Name of Antibiotic Given: Clindamycin Steroids Given: None Reason Steroids Not Administered: Not Applicable MEMBRANES Membranes Rupture Method: Artificial Rupture of Membranes: 04/15/2018 18:06 Length of Rupture (hr): 6.78 Amniotic Fluid Color: Clear Amniotic Fluid Amount: Small Amniotic Fluid Odor: None STAGES OF LABOR Stage 1 hr: 0 Stage 1 min: 43 Stage 2 hr: 0 Stage 2 min: 37 Stage 3 hr: 0 Stage 3 min: 4 Total Time in Labor hr: 1 Total Time in Labor min: 24 VAGINAL DELIVERY Episiotomy: None Laceration #1: Perineal Laceration Extension #1: First Degree Laceration #2: Vaginal Laceration Extension #2: First Degree Laceration Repair: Yes Laceration Repair Note: Bilateral 1cm 1st degree vaginal lac repaired in interrupted fashion with 3.0 Vicryl Perineal skin laceration repaired in interrupted fashion with 3.0 Vicryl Sponge Count Correct: N/A Sharps Count Correct: Yes CSECTION DELIVERY Primary Indication: N/A Secondary Indication: N/A CSection Incidence: N/A Labor: N/A Elective: N/A CSection Incision: N/A BABY A INFORMATION Delivery Date/Time: 04/16/2018 00:53 Method of Delivery: Vaginal Born in Route : No : N/A Forceps: N/A Vacuum Extraction: N/A Shoulder Dystocia : No PRESENTATION/POSITION BABY A Presentation: Cephalic Cephalic Presentation: Vertex Vertex Position: Left Occipital Anterior Breech Presentation: N/A PLACENTA INFORMATION BABY A Placenta Delivery Time : 04/16/2018 00:57 Placenta Method of Delivery: Spontaneous Placenta Status: Delivered SCORES BABY A Heart Rate 1 min: >100 bpm Resp Effort 1 min: Good Cry Reflex Irritability 1 min: Cough or Sneeze or Pulls Away Muscle Tone 1 min: Active Motion Color 1 min: Blue/Pale Resuscitation Effort 1 min: Tactile Stimulation SCORE 1 MIN: 8 Heart Rate 5 min: >100 bpm Resp Effort 5 min: Good Cry Reflex Irritability 5 min: Cough or Sneeze or Pulls Away Muscle Tone 5 min: Active Motion Color 5 min: Body [place], Extremities Blue Resuscitation Effort 5 min: Tactile Stimulation SCORE 5 MIN: 9 INFORMATION BABY A Gestational Age at Delivery: 38.0 Gestational Status: Early Term- 37- 38.6 Weeks Infant Outcome : Liveborn Infant Condition : Stable Sex: Male IDENTIFICATION BABY A Infant Verification Date/Time: 04/16/2018 02:47 ID Band Number: [id number] Mother's Name Verified: Yes RN Verifying : rn ring Additional Verifying Personnel: [facility] WEIGHT/LENGTH BABY A Birthweight (gm): 3140 Infant Weight (lb): 6 Infant Weight (oz): 15 Length (in): 19.00 Length (cm): 48.26 CORD INFORMATION BABY A No. Cord Vessels: 3 Nuchal Cord : N/A Cord Blood Taken: Yes-For Eval (Mom's Blood Type - or O+) ASSESSMENT BABY A Complications: Multiple Variable Decels Physical Findings at Delivery: Molding of the Head; Puncture Wound from Scalp Electrode Physical Findings- Other: See full nursery flight control specialist Infant Respirations: Appears Normal Skin to Skin: Yes Skin to Skin Time (min): 30 Wet Press Tender/ALS Called : No Care By: Clifford Hauser RN Transferred To: Remains with Mother BABY B INFORMATION : N/A SIGNATURES Signature: with User ID: [email or web address] : I was personally available for consultation and serving as supervising physician for the MLP.
--- NOTE | 2018-04-16 04:39 | Warning Signs in Babies ---
VOD Warning Signs Datetime Report Generated by [facility]: 04/16/2018 04:38 VOD#608 -Warning Signs in Babies: Needs to be viewed. (12/29/2017 20:40:Isa Horton RN)
[2018-04-16] MEDS ORDERED: OXYTOCIN/NORMAL SALINE 20 UNIT/1,000 ML RTUINJ ONE (09:52)
[2018-04-16] MEDS: SENNOSIDES/DOCUSATE 8.6-50 MG 1 EACH TABLET PO SCH (10:02)
[2018-04-16] MEDS: PRENATAL VITAMIN W DHA CAPSULE PO SCH (10:02)
[2018-04-16] MEDS: FERROUS SULFATE 325 MG TABLET PO SCH ×2 (10:03→18:05)
[2018-04-16] MEDS: DOCUSATE SODIUM 100 MG CAPSULE PO SCH ×2 (10:03→18:05)
--- NOTE | 2018-04-16 10:46 | PDOC PROGRESS REPORT ---
Subjective-OB Progress Note for:: 04/16/18 Subjective: pt doing well, no concerns. She reports light bleeding, reg diet and voiding without difficulty. Physical Exam (OB) Vital Signs: Temp Pulse Resp BP Pulse Ox 98.1 F 64 16 120/77 98 04/16/18 08:33 04/16/18 08:33 04/16/18 08:33 04/16/18 08:33 04/16/18 08:33 Intake & Output 04/15/18 04/16/18 04/17/18 06:59 06:59 06:59 Intake Total 1000 2758 Balance 1000 2758 - PIH/Pre-Eclampsia DTR's: 2 + Clonus: Negative Headache: Absent Epigastric Pain: No Visual Changes: No - Lochia Lochia Amount: Moderate 25-50 ml Lochia Color: Rubra/Red - Abdomen Description: Soft Hernia Present: Yes Fundal Description: Firm, Midline Fundal Height: u/u - u/2 Objective-Diagnostic Laboratory: 04/15/18 19:06 04/15/18 19:06 04/15/18 04/15/18 19:06 19:06 WBC 9.8 RBC 4.00 Hgb 11.7 L Hct 33.7 L MCV 84 MCH 29.2 MCHC 34.7 RDW 13.2 Plt Count 178 Seg Neutrophils % 75.4 Lymphocytes % 14.5 Monocytes % 8.2 Eosinophils % 1.3 Basophils % 0.6 Absolute Neutrophils 7.4 Absolute Lymphocytes 1.4 Absolute Monocytes 0.8 Absolute Eosinophils 0.1 Absolute Basophils 0.1 Sodium 137.2 Potassium 3.5 L Chloride 109 H Carbon Dioxide 20 L Anion Gap 8 BUN 4 L Creatinine 0.46 L Est GFR ( Amer) > 60 Est GFR (Non-Af Amer) > 60 Glucose 84 Uric Acid 4.2 Calcium 9.3 Total Bilirubin 0.3 AST 30 ALT 27 Alkaline Phosphatase 109 Total Protein 6.2 L Albumin 3.2 L Assessment and Plan(PN) - Assessment and Plan (1) Vaginal delivery Is this a current diagnosis for this admission?: Yes (2) Pre-eclampsia affecting , antepartum Is this a current diagnosis for this admission?: Yes - Time Spent with Patient Time with patient: Less than 15 minutes Medications reviewed and adjusted accordingly: Yes - Disposition Anticipated Discharge: Home, Other - to L&D this afternoon Within: within 24 hours
[2018-04-16] MEDS: IBUPROFEN 800 MG TABLET PO SCH ×3 (13:32→21:50)
[2018-04-17] MEDS: IBUPROFEN 800 MG TABLET PO SCH ×2 (05:26→13:38)
[2018-04-17 07:51] LABS: HEMATOCRIT 26.5 % (36.0-47.0); MEAN CORPUSCULAR HEMOGLOBIN 29.3 pg (27.0-33.4); MEAN CORPUSCULAR HGB CONC 34.3 g/dL (32.0-36.0); MEAN CORPUSCULAR VOLUME 85 fl (80-97); PLATELET COUNT 166 10^3/uL (150-450); RED CELL DISTRIBUTION WIDTH 13.3 % (11.5-14.0); WHITE BLOOD COUNT 7.5 10^3/uL (4.0-10.5)
[2018-04-17 07:58] LABS: HEMOGLOBIN 9.1 g/dL (12.0-15.5)
[2018-04-17] MEDS: DOCUSATE SODIUM 100 MG CAPSULE PO SCH ×2 (09:37→17:20)
[2018-04-17] MEDS: FERROUS SULFATE 325 MG TABLET PO SCH ×2 (09:37→17:20)
[2018-04-17] MEDS: PRENATAL VITAMIN W DHA CAPSULE PO SCH (09:37)
[2018-04-17] MEDS: SENNOSIDES/DOCUSATE 8.6-50 MG 1 EACH TABLET PO SCH (09:37)
--- NOTE | 2018-04-17 12:26 | PDOC PROGRESS REPORT ---
Subjective-OB Progress Note for:: 04/17/18 Subjective: PP Day #1, doing well, , A negative, Rubella Immune Physical Exam (OB) Vital Signs: Temp Pulse Resp BP Pulse Ox 97.7 F 81 17 137/82 H 99 04/17/18 11:29 04/17/18 11:29 04/17/18 11:29 04/17/18 11:29 04/17/18 11:29 Intake & Output 04/16/18 04/17/18 04/18/18 06:59 06:59 06:59 Intake Total 2758 300 Balance 2758 300 - General General Appearance: Appears well, Alert In distress: None - PIH/Pre-Eclampsia DTR's: 1 + Clonus: Negative Headache: Absent Epigastric Pain: No Visual Changes: No - Lochia Lochia Amount: Scant < 10 ml Lochia Color: Rubra/Red - Abdomen Description: Soft, Round Hernia Present: No Fundal Description: Firm, Midline Fundal Height: u/u - u/2 - HEENT Eyes: Normal Ears: Normal Sinus: Normal Nasal: Normal - Respiratory Respiratory Status: No respiratory distress - Abdominal Inspection: Normal - Genitourinary Genitourinary Note: voiding - Extremities Upper extremity: Normal inspection Lower extremities: Normal inspection - Neurological Cognition: Normal Orientation: AAOx4, Alert - Psychological Associated symptoms: Normal affect, Normal mood Objective-Diagnostic Laboratory: 04/17/18 07:17 04/15/18 19:06 04/17/18 04/17/18 07:17 07:17 WBC 7.5 RBC 3.10 L Hgb 9.1 L D Hct 26.5 L MCV 85 MCH 29.3 MCHC 34.3 RDW 13.3 Plt Count 166 Blood Type A NEGATIVE Assessment and Plan(PN) - Time Spent with Patient Medications reviewed and adjusted accordingly: Yes - Disposition Anticipated Discharge: Home, Other - to L&D this afternoon
--- NOTE | 2018-04-17 13:47 | PDOC DISCHARGE SUMMARY ---
Final Diagnosis Discharge Date: 04/17/18 - Final Diagnosis (1) Headache Is this a current diagnosis for this admission?: No (3) Pre-eclampsia affecting , antepartum Is this a current diagnosis for this admission?: Yes (4) Is this a current diagnosis for this admission?: Yes (5) Vaginal delivery Is this a current diagnosis for this admission?: Yes Discharge Data - Discharge Medication Prescriptions: Ibuprofen [Motrin 800 mg Tablet] 800 mg PO Q8 PRN #45 tablet PRN Reason: Home Medications: Vit/Iron Fum/Folic AC [ Tablet] 1 tab PO DAILY 12/29/17 Ibuprofen [Motrin 800 mg Tablet] 800 mg PO Q8 PRN #45 tablet 04/17/18 Reason(s) for Admission: Induction of Labor Procedures: NST, Ultrasound Intrapartum Procedure(s): Spontaneous Vaginal Delivery - Diagnosis Test Laboratory: Temp Pulse Resp BP Pulse Ox 97.7 F 81 17 137/82 H 99 04/17/18 11:29 04/17/18 11:29 04/17/18 11:29 04/17/18 11:29 04/17/18 11:29 04/12/18 04/12/18 04/14/18 16:07 17:15 15:32 RBC 3.89 Hgb 11.4 L Hct 33.1 L Urine Opiates Screen NEGATIVE NEGATIVE 04/15/18 04/15/18 04/17/18 09:38 19:06 07:17 RBC 4.01 4.00 3.10 L Hgb 11.7 L 11.7 L 9.1 L D Hct 33.9 L 33.7 L 26.5 L Urine Opiates Screen - Discharge information/Instructions Discharge Activity: Activity As Tolerated Discharge Diet: As Tolerated, Regular Disposition: HOME, SELF-CARE Follow up with: [facility] in: 1, Weeks - for a BP check
[2018-04-17 14:52] LABS: FETAL RBC COUNT 4
[2018-04-17 15:04] LABS: KB INTERPRETATION POSITIVE (NEGATIVE)
[2018-04-17 16:30] VITALS: BP 122/76
== END 2018-04-17 21:23 | disposition home or self-care (01) | DRG 774 ==
LOC: LC 15:51 → LR 18:45 → 2S 04-13 00:36 → LR 04-14 14:35 → OBSVTOIN 04-14 14:42 → 2S 04-16 03:20
PROVIDERS: ADMIT Obstetrics & Gynecology; ATTEND Obstetrics & Gynecology
PROC: 10E0XZZ Delivery of Products of Conception, External Approach (ICD-10-PCS; principal; 2018-04-16)
PROC: 3E0234Z Introduction of Serum, Toxoid and Vaccine into Muscle, Percutaneous Approach (ICD-10-PCS; 2018-04-16)
DX: O36.0930 Maternal care for other rhesus isoimmunization, third trimester, not applicable or unspecified (principal); O10.92 Unspecified pre-existing hypertension complicating childbirth; O26.873 Cervical shortening, third trimester; O11.4 Pre-existing hypertension with pre-eclampsia, complicating childbirth; O99.824 Streptococcus B carrier state complicating childbirth; O99.214 Obesity complicating childbirth; O70.0 First degree perineal laceration during delivery; O76 Abnormality in fetal heart rate and rhythm complicating labor and delivery; Z3A.37 37 weeks gestation of pregnancy; Z37.0 Single live birth
CPT/HCPCS: 36415; 59025; 80053; 80307; 81001; 81005; 82570; 83615; 84156; 84550; 85025; 85027; 85460; 85461; 86592; 86850; 86900; 86901; 87491; 87591; 94760; G0378; G0379; J0456; J2300; J2370; J2540; J2550; J2590; J2790; J3010; J3490; Q0144

== ENCOUNTER 2018-06-22 18:24 | Emergency (ER) | payer MEDICAID ==
[2018-06-22] MEDS ORDERED: METHYLPREDNISOLONE INJ 125 MG/2 ML SDV IM ONE (19:47)
--- NOTE | 2018-06-22 19:51 | ER Document Report ---
HPI - HPI Time Seen by Provider: 06/22/18 19:42 Pain Level: 4 Notes: Patient is a 22-year-old female with a history of eczema who presents to the ED complaining of an eczema flare on her face. Patient states that she has had this flareup before and has needed a steroid shot as well as steroids to go home with and an antibiotic. Patient states that she is noticing some weeping to some of the rash on her face that is pruritic. Patient is requesting an antibiotic as it has been infected before. She has no other concerns or complaints. She is eating and drinking without difficulty. No other recent illness. Denies any headache, fever, head injury, neck pain, changes in vision/ speech/mentation/hearing, URI, sore throat, chest pain, palpitations, syncope, cough, shortness of breath, wheeze, dyspnea, abdominal pain, nausea/vomiting/ diarrhea, urinary retention, dysuria, hematuria. - ROS Systems Reviewed and Negative: Yes All other systems reviewed and negative - REPRODUCTIVE Reproductive: DENIES: : Past Medical History - Social History Smoking Status: Never Smoker Family History: Reviewed & Not Pertinent, Hyperlipidemia, Hypertension, Thyroid Disfunction, Other - CAT - Past Medical History Cardiac Medical History: Denies: Hx Coronary Artery Disease, Hx Heart Attack, Hx Hypertension Pulmonary Medical History: Denies: Hx Asthma, Hx Bronchitis, Hx COPD, Hx Pneumonia Neurological Medical History: Denies: Hx Cerebrovascular Accident Endocrine Medical History: Renal/ Medical History: Reports: Hx Kidney Stones. Denies: Hx Peritoneal Dialysis Musculoskeletal Medical History: Denies Hx Arthritis Skin Medical History: Reports Hx Eczema, Reports Hx MRSA Past Surgical History: Reports: Hx Oral Surgery - jaw surgery,, Hx Orthopedic Surgery - hip surgery - Immunizations Immunizations up to date: Yes Hx Diphtheria, Pertussis, Tetanus Vaccination: Yes Vertical Provider Document - CONSTITUTIONAL Agree With Documented VS: Yes Notes: PHYSICAL EXAMINATION: GENERAL: Well-appearing, well-nourished and in no acute distress. HEAD: Atraumatic, normocephalic. EYES: Pupils equal round and reactive to light, extraocular movements intact, sclera anicteric, conjunctiva are normal. ENT: EAC clear b/l. TM's intact b/l without erythema, fluid, or perforation. Nares patent and without discharge. oropharynx clear without exudates. No tonsilar hypertrophy or erythema. Moist mucous membranes. No sinus tenderness. No angioedema or airway compromise. NECK: Normal range of motion, supple without lymphadenopathy LUNGS: Breath sounds clear to auscultation bilaterally and equal. No wheezes rales or rhonchi. HEART: Regular rate and rhythm without murmurs, rubs, gallops. ABDOMEN: Soft, nontender, nondistended abdomen. No guarding, no rebound. No masses appreciated. Normal bowel sounds present. No CVA tenderness bilaterally. Musculoskeletal: FROM to passive/active. Strength 5+/5. Extremities: No cyanosis, clubbing, or edema b/l. Peripheral pulses 2+. Capillary refill less than 3 seconds. NEUROLOGICAL: Cranial nerves grossly intact. Normal speech, normal gait. Normal sensory, motor exams PSYCH: Normal mood, normal affect. SKIN: There is a dry mildly erythemic rash encompassing her face and orbits that has associated cracked skin without purulence, fluctuance, streaks. Nontender to palpation. - INFECTION CONTROL TRAVEL OUTSIDE OF THE [place] IN LAST 30 DAYS: No Course - Re-evaluation Re-evalutation: 06/22/18 19:48 Patient is an afebrile, well-hydrated, 22-year-old female who presents to the ED with a skin rash to her face which I do suspect to be eczema. Vitals are acceptable without significant tachycardia, tachypnea, or hypoxia. PE is otherwise unremarkable. Patient is nontoxic-appearing and is able to tolerate p.o. without difficulty. Solu-Medrol given IM today. Low suspicion for any SJS , sepsis, meningitis, severe dehydration, respiratory compromise, or other systemic emergent condition at this time. Patient is aware that condition can change from initial presentation and she needs to monitor symptoms closely and seek medical attention with any acute changes. I will send her home with a prescription for a steroid taper as well as Keflex which she may begin with any signs of bacterial infection. Patient states that she has had Keflex before and gets a rash with penicillins. Recheck with your PCM in 3-5 days. Return to the ED with any worsening/concerning symptoms otherwise as reviewed discharge. Patient is in agreement. - Vital Signs Vital signs: Temp Pulse Resp BP Pulse Ox 97.6 F 90 16 145/81 H 97 06/22/18 18:29 06/22/18 18:29 06/22/18 18:29 06/22/18 18:29 06/22/18 18:29 Discharge - Discharge Clinical Impression: Eczema Qualifiers: Eczema type: unspecified Qualified Code(s): L30.9 - Dermatitis, unspecified Condition: Stable Disposition: HOME, SELF-CARE Additional Instructions: Keep the skin clean Wash with soap and water Tylenol/ibuprofen if needed Triple antibiotic ointment daily for any break in the skin Take medication as directed Monitor for any worsening symptoms Recheck with your PCM in 3-5 days Return to the ED with any worsening symptoms and/or development of fever, headache, chest pain, palpitations, syncope, shortness of breath, trouble breathing, abdominal pain, n/v/d, abscess, purulent discharge, red streaks, worsening swelling, or other worsening symptoms that are concerning to you. Prescriptions: Cephalexin Monohydrate [Keflex 500 mg Capsule] 500 mg PO TID #21 capsule Prednisone [Deltasone 10 mg Tablet] 10 mg PO ASDIR PRN #18 tablet PRN Reason: Forms: Elevated Blood Pressure Referrals: LATRICE JEFFERS MD [Primary Care Provider] - Follow up in 3-5 days
[2018-06-22 20:16] VITALS: BP 123/77
== END 2018-06-22 20:16 | disposition home or self-care (01) ==
LOC: ER 18:24
DX: L30.9 Dermatitis, unspecified (principal); Z86.14 Personal history of Methicillin resistant Staphylococcus aureus infection; Z87.442 Personal history of urinary calculi
CPT/HCPCS: 99283; 96372; J2930